=== PATIENT | female | born 1935 | race Caucasian/White ===

== ENCOUNTER 2017-05-25 09:24 | Observation (INO) ==
--- NOTE | 2017-05-25 10:02 | Emergency Department Note ---
Disposition Clinical Impression: CHF (congestive heart failure) Qualifiers: Congestive heart failure type: systolic Congestive heart failure chronicity: unspecified Qualified Code(s): I50.20 - Unspecified systolic (congestive) heart failure Disposition: Admitted As Inpatient Condition: Fair Referrals: Lanie Sandhu CNP [Primary Care Provider] - Forms: ED Satisfaction Letter Time of Disposition: 11:27 SOB HPI - General Chief Complaint: ED Shortness of Breath/Dyspnea Stated Complaint: sob-sent from cardiology for CHF Time Seen by Provider: 05/25/17 09:37 Source: patient Limitations: no limitations Nursing Notes Reviewed: Yes Vital Signs Reviewed: Yes - History of Present Illness I did review the previous record the 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 No orthopnea or paroxysmal nocturnal dyspnea. Does have increased swelling of the lower extremities and chronic pain of the legs but nothing new. Does have 7 pounds weight gain. She does have a cough when she eats but not at other times. She denies any fevers, no blood in the urine or stool. No history of congestive heart failure. Social history : No smoking or alcohol - Related Data Home Medications Medication Instructions Recorded Confirmed Aspirin 81 mg PO QAM 05/14/15 05/25/17 Bumetanide [Bumex] 1 mg PO 3XW 05/14/15 05/25/17 Metoprolol [Lopressor] 100 mg PO BID 05/14/15 05/25/17 Potassium Chloride [K-Tab ER] 20 meq PO 3XW 05/14/15 05/25/17 Warfarin [Coumadin] 2.5 mg PO QPM 05/14/15 05/25/17 Allergies Allergy/AdvReac Type Severity Reaction Status Date / Time No Known Allergies Allergy Verified 05/25/17 09:32 Review of Systems: Constitutional: No fever Vision: No blurred vision ENT: No rhinorrhea Respiratory: + cough Allergic: No allergies : No blood in urine GI: No blood in stool Hematologic: No bruising Dermatologic: No skin rash Musculoskeletal: No new pain in the extremities Neuro: No numbness of the extremities Past Medical History - Past Medical History Medical history: Reports: atrial fibrillation, CHF, hypertension Surgical history: Reports: cholecystectomy, hysterectomy Psychiatric history: Reports: no psych history - Social History Smoking Status: Never smoker Smokeless Tobacco Status: No Alcohol use: Reports: none Drug use: Reports: none Physical Exam CONSTITUTIONAL: Well-appearing; well-nourished; A&O X 3, in no apparent distress HEAD: Normocephalic; atraumatic EYES: PERRL, no scleral icterus NOSE: The nose is normal in appearance without rhinorrhea NECK: No JVD or distended neck veins RESP: Normal chest excursion with respiration; breath sounds clear and equal bilaterally; no wheezes, rhonchi, or rales CARD: Regular rhythm, without murmurs, rub or gallop ABD: Non-distended; non-tender, soft, without rigidity, rebound or guarding,no pulsatile mass CHEST: No pain with palpation SKIN: Normal for age and race; warm and dry without diaphoresis ; no apparent lesions EXTREMITIES: Pulses are 2 plus and equal times 4 extremities, 2+ bilateral symmetric pretibial pitting edema, no calf muscle pain, no erythema or signs of infection - General Limitations: no limitations General appearance: alert Course Vital Signs Temperature 97.8 F 05/25/17 09:32 Pulse Rate 63 05/25/17 09:32 Respiratory Rate 24 05/25/17 09:32 Blood Pressure 178/86 05/25/17 09:32 O2 Sat by Pulse Oximetry 95 05/25/17 09:32 Temperature 97.8 F 05/25/17 09:32 Pulse Rate 57 05/25/17 10:19 Respiratory Rate 18 05/25/17 10:19 Blood Pressure 180/95 05/25/17 10:19 O2 Sat by Pulse Oximetry 95 05/25/17 10:19 Oxygen Delivery Oxygen Delivery Nasal Cannula Shortness of Breath/Dyspnea - [facility] Narrative Medical decision making narrative: Patient's symptoms consistent with congestive heart failure but this will be further evaluated with chest x-ray as well as labs. I did review patient's EKG was does have sinus bradycardia as well as anterior T-wave inversion. This is a low voltage QRS complex however I did hear good heart sounds. Patient will be admitted for further inpatient evaluation. She was sent in by cardiology. 1003 Did review the patient's test results. I did speak with the hospitalist who accepted the patient for admission. I did review the echocardiogram which we did bedside which does not show evidence of pericardial tamponade. The patient is admitted to the hospital. I did start Lasix and nitroglycerin paste 1126 - Medical Records Medical records reviewed: Yes I reviewed the patient's medical records. - Lab Data Lab results reviewed: Yes I reviewed the patient's lab results. Result diagrams: 05/25/17 10:20 05/25/17 10:20 Lab Results 05/25/17 05/25/17 05/25/17 Range/Units 10:20 10:20 10:20 WBC 6.6 (4.3-11.1) K/mcL RBC 4.85 (3.82-4.97) M/mcL Hgb 13.7 (11.5-15.4) g/dL Hct 42.3 (35.3-44.9) % MCV 87.2 (83.0-100.0) fL MCH 28.2 (28.0-33.3) pg MCHC 32.4 (31.6-35.5) g/dL RDW 14.0 (11.5-14.5) % Plt Count 198 (140-400) K/mcL MPV 10.0 (9.4-12.4) fL Immature Gran % 1.5 (0-4) % Seg Neutrophils % 61.8 % Lymphocytes % 25.5 % Monocytes % 8.6 % Eosinophils % 2.0 % Basophils % 0.6 % Neutrophils # 4.1 (1.6-8.9) K/mcL Lymphocytes # 1.7 (0.6-4.6) K/mcL Monocytes # 0.6 (0.0-1.3) K/mcL Eosinophils # 0.1 (0.0-0.6) K/mcL Basophils # 0.0 (0.0-0.2) K/mcL Sodium 140 (136-145) mEq/L Potassium 4.0 (3.5-5.1) mEq/L Chloride 103 (98-107) mEq/L Carbon Dioxide 29 (23-29) mEq/L BUN 13 (8-23) mg/dL Creatinine 0.85 (0.60-1.20) mg/dL Est GFR ( Amer) > 60 (> 60) Est GFR (Non-Af Amer) > 60 (> 60) BUN/Creatinine Ratio 15 (6-26) Glucose 126 H (70-105) mg/dL Calculated Osmolality 292 (280-300) Calcium 8.8 (8.6-10.3) mg/dL Troponin I < 0.03 (< 0.04) ng/mL B-Natriuretic Peptide (Less than 100) pg/mL 05/25/17 Range/Units 10:20 WBC (4.3-11.1) K/mcL RBC (3.82-4.97) M/mcL Hgb (11.5-15.4) g/dL Hct (35.3-44.9) % MCV (83.0-100.0) fL MCH (28.0-33.3) pg MCHC (31.6-35.5) g/dL RDW (11.5-14.5) % Plt Count (140-400) K/mcL MPV (9.4-12.4) fL Immature Gran % (0-4) % Seg Neutrophils % % Lymphocytes % % Monocytes % % Eosinophils % % Basophils % % Neutrophils # (1.6-8.9) K/mcL Lymphocytes # (0.6-4.6) K/mcL Monocytes # (0.0-1.3) K/mcL Eosinophils # (0.0-0.6) K/mcL Basophils # (0.0-0.2) K/mcL Sodium (136-145) mEq/L Potassium (3.5-5.1) mEq/L Chloride (98-107) mEq/L Carbon Dioxide (23-29) mEq/L BUN (8-23) mg/dL Creatinine (0.60-1.20) mg/dL Est GFR ( Amer) (> 60) Est GFR (Non-Af Amer) (> 60) BUN/Creatinine Ratio (6-26) Glucose (70-105) mg/dL Calculated Osmolality (280-300) Calcium (8.6-10.3) mg/dL Troponin I (< 0.04) ng/mL B-Natriuretic Peptide 208 H (Less than 100) pg/mL - Radiology Data Radiology results reviewed: Yes I reviewed the patient's radiology results. Chest X-Ray 05/25/17 09:50 IMPRESSION: Stable cardiomegaly with mild pulmonary vascular congestion. D/ / Faith Thomas MD / Faith Thomas MD Interpreting Provider: Faith Thomas MD Critical Care Time Critical Care Time: No
[2017-05-25 10:37] LABS: Basophils % 0.6 %; Eosinophils # 0.1 K/mcL (0.0-0.6); Hematocrit 42.3 % (35.3-44.9); Hemoglobin 13.7 g/dL (11.5-15.4); Immature Granulocytes % 1.5 % (0-4); Lymphocytes # 1.7 K/mcL (0.6-4.6); Lymphocytes % 25.5 %; Mean Corpuscular HGB Conc 32.4 g/dL (31.6-35.5); Mean Corpuscular Hemoglobin 28.2 pg (28.0-33.3); Mean Corpuscular Volume 87.2 fL (83.0-100.0); Monocytes # 0.6 K/mcL (0.0-1.3); Monocytes % 8.6 %; Neutrophils # 4.1 K/mcL (1.6-8.9); Platelet Count 198 K/mcL (140-400); Red Blood Count 4.85 M/mcL (3.82-4.97); Segmented Neutrophils % 61.8 %
[2017-05-25 10:59] LABS: BUN/Creatinine Ratio 15 (6-26); Blood Urea Nitrogen 13 mg/dL (8-23); Calcium 8.8 mg/dL (8.6-10.3); Carbon Dioxide 29 mEq/L (23-29); Chloride 103 mEq/L (98-107); Glucose 126 mg/dL (70-105); Osmolality,Calculated 292 (280-300); Sodium 140 mEq/L (136-145); eGFR For African Americans > 60 (> 60); eGFR For Non-African Americans > 60 (> 60)
[2017-05-25] MEDS ORDERED: Nitroglycerin 1 INCH/GM PACKET TP ONE (11:14)
[2017-05-25] MEDS ORDERED: Furosemide 40 MG/4 ML VIAL IVP ONE (11:14)
[2017-05-25 12:20] LABS: INR 1.7; Prothrombin Time 18.4 Seconds (9.4-12.1)
[2017-05-25] MEDS ORDERED: Naloxone 0.4 MG/ML INJ IVP PRN (13:12)
[2017-05-25] MEDS ORDERED: Acetaminophen 325 MG TABLET PO PRN (13:12)
--- NOTE | 2017-05-25 13:23 | Internal Med History&Physical ---
<Larry Paredes - Last Filed: 05/25/17 13:43> Date of Encounter: 05/25/17 Time of Encounter: 12:30 Assessment and Plan (1) CHF (congestive heart failure) Current visit: Yes Status: Acute Acute and new onset of congestive heart failure. Pt. denies previous hx. No recent echocardiogram. She reports SOB and dyspnea for the past three weeks, worsening over the past week w/7 pound weight gain. No home O2 use. States she takes Bumex but no regularly because it causes extreme pain in legs. Cardiology consult ordered in ED and I appreciate the consult. Echocardiogram ordered. Continuous cardiac telemetry. Will hold Bumex and administer 60 mg IVP lasix BID. 1.5L daily fluid restricition. Monitor I&O and daily weight. Supplemental O2 w/titration and SpO2 monitoring PRN. Xopenex 0.63 Q6 scheduled. Mucinex BID for cough. Pt. discussed w/Dr. Henao who is in agreement w/plan of care. Pt. 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 Observation. Qualifiers: Congestive heart failure type: unspecified Congestive heart failure chronicity: unspecified Qualified Code(s): I50.9 - Heart failure, unspecified (2) Atrial fibrillation Current visit: Yes Status: Chronic Hx of chronic paroxysmal atrial fibrillation. EKG today shows sinus bradycardia. Continuous cardiac telemetry. Will continue pts. Coumadin w/ pharmacy dosing. Qualifiers: Atrial fibrillation type: paroxysmal Qualified Code(s): I48.0 - Paroxysmal atrial fibrillation (3) HTN (hypertension) Current visit: Yes Status: Chronic Hx of chronic HTN. Monitor pt. and VS. Pt. currently takes metoprolol but is experiencing breakthrough HTN. Will continue metoprolol and add Imdur 30 mg daily. Qualifiers: Hypertension type: essential hypertension Qualified Code(s): I10 - Essential (primary) hypertension (4) Gout Current visit: Yes Status: Chronic Hx of chronic gout. Pt. reports occasional flare-ups but is not currently taking medication for gout. Will order Allopurinol if warranted. Qualifiers: Gout site: unspecified site Gout etiology: unspecified cause Chronicity: unspecified Qualified Code(s): M10.9 - Gout, unspecified (5) DVT prophylaxis Current visit: Yes Status: Acute Continue pts. Coumadin w/pharmacy dosing for DVT prophylaxis. Monitor pt. for signs of bleeding. Internal Medicine - H&P: HPI Chief complaint: SOB/Dyspnea Admitted From: Emergency Dept Plans for Post Hospital Care: Home History of present illness: Ms. Tarango is a 82 year old female with medical hx of atrial fibrillation, gout , and hypertension presents from the ED with chief complaint shortness of breath and dyspnea for the past 3 weeks which is worsened over the past week. Patient also reports weight gain of 7 pounds over the past week. Denies use of home oxygen. SOB and dyspnea become worse with exertion and patient is also reported increase in lower extremity pedal edema bilaterally. Patient has been state they both were sick several weeks ago and patient reports residual cough. Patient reports SOB and dyspnea but denies fever, chills, nausea, vomiting, changes in vision, headache, chest pain, palpitations, numbness, tingling, abdominal pain, diarrhea, constipation, weakness, fatigue, dizziness, lightheadedness, pre-syncope, or syncope. Past Med Surg Social Fam HX - Past Medical History Source: patient, old records reviewed, obtained from family Medical history: atrial fibrillation, hypertension Psychiatric history: no psych history - Past Surgical History Surgical History: cholecystectomy, hysterectomy (Total) - Social History Smoking Status: Never smoker Smokeless Tobacco Status: No Alcohol use: none Drug use: none Current living situation: Home, With Family Activity Level: Independent ambulation Recent Out of Country Travel Within the Last 8 Weeks: No Exposure or Possible Exposure to Illness During Travel: No - Family History Mother Race: Family Member Ethnicity: Non- Living Status: Age at : 88 Cause of : Stroke complications Hx Family Cardiac Disorders: Yes (Stroke) Hx Family Endocrine Disorder: Yes (diabetes) Father Race: Family Member Ethnicity: Non- Living Status: Age at : 88 Cause of : Stroke Hx Family Cardiac Disorders: Yes (Stroke) Brother Race: Family Member Ethnicity: Non- Living Status: Age at : 75 Cause of : Pancreatitis Hx Family Endocrine Disorder: Yes (Pancreatic problems) Sister Race: Family Member Ethnicity: Non- Living Status: Age at : 89 Cause of : NH Hx Family Cardiac Disorders: Yes (NH) Hx Family Endocrine Disorder: Yes (DM) Internal Medicine - H&P: Meds Aspirin 81 mg PO QAM 05/14/15 [History] Bumetanide [Bumex] 1 mg PO 3XW 05/14/15 [History] Metoprolol [Lopressor] 100 mg PO BID 05/14/15 [History] Potassium Chloride [K-Tab ER] 20 meq PO 3XW 05/14/15 [History] Warfarin [Coumadin] 2.5 mg PO QPM 05/14/15 [History] 3 Allergy/AdvReac Type Severity Reaction Status Date / Time No Known Allergies Allergy Verified 05/25/17 09:32 All Systems PM: A 10-system review of systems was performed and is negative for pertinent findings except as documented above in the HPI. - Constitutional Constitutional: as per HPI, weight gain (7 lbs in 1 week), no chills, no fever(s ), no night sweats - EENT Eyes: no change in vision, no discharge, no pain, no photophobia Ears: no ear discharge, no ear pain, no tinnitus Nose, mouth and throat: no dysphagia, no nasal discharge, no neck pain, no sore throat - Breasts Breasts: as per HPI - Cardiovascular Cardiovascular ROS IM: as per HPI, dyspnea, dyspnea on exertion, edema ( Bilateral pedal edema), no chest pain, no diaphoresis, no lightheadedness, no palpitations, no syncope - Respiratory Respiratory: as per HPI, cough, dyspnea, dyspnea on exertion, no wheezing, no excessive phlegm production - Gastrointestinal Gastrointestinal: no abdominal pain, no diarrhea, no hematemesis, no hematochezia, no melena, no nausea, no vomiting - Genitourinary Genitourinary: no change in urinary stream, no dysuria, no flank pain, no hematuria Menstruation: as per HPI - Musculoskeletal Musculoskeletal ROS IM: no numbness, no tingling - Integumentary Integumentary IM: no rash, no unusual bruising - Neurological Neurological ROS: no confusion, no convulsions, no focal weakness, no numbness, no tingling, no tremor(s) - Psychiatric Psychiatric: as per HPI - Endocrine Endocrine IM: as per HPI - Hematologic/Lymphatic Hematologic/Lymphatic: no easy bruising - Allergic/Immunologic Allergic/Immunologic: as per HPI - Constitutional Vitals: Temp Pulse Resp BP Pulse Ox 97.7 F 63 16 173/82 91 05/25/17 12:12 05/25/17 12:12 05/25/17 12:12 05/25/17 12:12 05/25/17 12:12 General appearance: Present: cooperative, A&O X 3, morbidly obese, pleasant, no acute distress, answers questions appropriately - Head Head exam: Present: atraumatic, normocephalic - Eye Eye exam: Present: PERRL, conjuntiva pink, sclera anicteric Pupils: Present: PERRL - ENT ENT exam: Present: normal exam - Neck Neck exam general surgery: Present: supple, trachea midline. Absent: lymphadenopathy - Respiratory Respiratory exam: Present: CTAB. Absent: accessory muscle use, rales, rhonchi, wheezes - Cardiovascular Cardiovascular exam: Present: bradycardia, +S1, +S2 - GI/Abdominal GI/Abdominal exam: Present: normal bowel sounds, soft, no peritoneal signs. Absent: distended, tenderness - Rectal Rectal exam: Present: deferred - Additional comments: exam deferred. - Extremities Exam Extremities exam: Present: pedal edema (1+ pitting edema bilaterally), warm, radial pulses palpable and symmetrical. Absent: calf tenderness, cyanotic - Back Exam Back exam: Present: normal inspection - Neurological Exam Neurological exam: Present: CN II-XII intact, oriented X3, no focal deficits. Absent: pronater drift, facial droop, speech deficit - Psychiatric Psychiatric exam: Present: normal affect, normal mood - Skin Skin exam: Present: dry, intact Internal Med - H&P Results - Labs CBC & Chem 7: 05/25/17 10:20 05/25/17 10:20 - EKG Data EKG shows normal: sinus rhythm Rate: bradycardia - EKG Data Prior EKG available for review: no EKG comments: 05/25/17 13:29 EKG dated 05/25/17 shows sinus bradycardia with low QRS voltage in precordial leads. - Diagnostic Studies Chest x-ray Additional comments: Impressions Chest X-Ray 05/25/17 09:50 IMPRESSION: Stable cardiomegaly with mild pulmonary vascular congestion. D/ / Faith Thomas MD / Faith Thomas MD Interpreting Provider: Faith Thomas MD <Giacomo Henao - Last Filed: 05/26/17 07:16> Date of Encounter: 05/26/17 Internal Medicine - H&P: HPI History of present illness: Ms. Tarango is a 82 year old female All Systems PM: A 10-system review of systems was performed and is negative for pertinent findings except as documented above in the HPI. - Constitutional Vitals: Temp Pulse Resp BP Pulse Ox 98.0 F 65 16 138/76 92 05/26/17 03:45 05/26/17 03:45 05/26/17 03:55 05/26/17 03:45 05/26/17 03:55 Internal Med - H&P Results - Labs CBC & Chem 7: 05/26/17 05:17 05/26/17 05:17 Labs: Short CBC 05/26/17 Range/Units 05:17 WBC 7.8 (4.3-11.1) K/mcL Hgb 13.4 (11.5-15.4) g/dL Hct 40.9 (35.3-44.9) % Plt Count 210 (140-400) K/mcL Neutrophils # 5.0 (1.6-8.9) K/mcL BMP 05/26/17 05:17 Sodium 140 Potassium 3.3 L Chloride 100 Carbon Dioxide 30 H BUN 17 Creatinine 0.95 Glucose 141 H Calcium 8.8 Liver Function 05/26/17 Range/Units 05:17 Total Bilirubin 1.2 H (0.3-1.0) mg/dL AST 16 (13-39) Units/L ALT 14 (7-52) Units/L Alkaline Phosphatase 64 (34-104) Units/L Albumin 4.1 (3.5-5.7) g/dL - Attending Attestation I examined this patient and my medical decision-making was reviewed with the Resident Physician. I agree with the documented findings, disposition and treatment plan as described except to the extent set forth below.
[2017-05-25] MEDS: Levalbuterol Neb 0.63 MG/3 ML IH SCH ×2 (15:50→22:32)
[2017-05-25] MEDS ORDERED: *HR* Warfarin 3 MG TABLET PO SCH (18:00)
[2017-05-25] MEDS ORDERED: Warfarin perPT PO PRN (18:00)
[2017-05-25] MEDS: Furosemide 40 MG/4 ML VIAL IVP SCH (20:02)
[2017-05-25] MEDS: Metoprolol 100 MG TABLET PO SCH (20:03)
[2017-05-26] MEDS: *HR* HYDROcodone/Acet 5/325 mg TABLET PO PRN ×2 (00:08→20:34)
[2017-05-26] MEDS: Levalbuterol Neb 0.63 MG/3 ML IH SCH ×4 (03:54→22:54)
[2017-05-26 06:29] LABS: Basophils % 0.5 %; Eosinophils # 0.1 K/mcL (0.0-0.6); Eosinophils % 1.5 %; Hematocrit 40.9 % (35.3-44.9); Hemoglobin 13.4 g/dL (11.5-15.4); Immature Granulocytes % 0.9 % (0-4); Lymphocytes # 1.9 K/mcL (0.6-4.6); Lymphocytes % 23.9 %; Mean Corpuscular HGB Conc 32.8 g/dL (31.6-35.5); Mean Corpuscular Hemoglobin 27.9 pg (28.0-33.3); Mean Corpuscular Volume 85.2 fL (83.0-100.0); Mean Platelet Volume 10.2 fL (9.4-12.4); Monocytes # 0.7 K/mcL (0.0-1.3); Monocytes % 8.8 %; Platelet Count 210 K/mcL (140-400); Red Cell Distribution Width 13.8 % (11.5-14.5); Segmented Neutrophils % 64.4 %
[2017-05-26 06:30] LABS: Hemoglobin A1C 5.7 %
[2017-05-26 06:41] LABS: INR 1.7; Prothrombin Time 18.7 Seconds (9.4-12.1)
[2017-05-26 07:03] LABS: Alanine Aminotransferase 14 Units/L (7-52); Albumin 4.1 g/dL (3.5-5.7); Albumin/Globulin Ratio 1.7 (1.1-2.2); Alkaline Phosphatase 64 Units/L (34-104); Aspartate Amino Transferase 16 Units/L (13-39); BUN/Creatinine Ratio 18 (6-26); Bilirubin,Total 1.2 mg/dL (0.3-1.0); Blood Urea Nitrogen 17 mg/dL (8-23); Calcium 8.8 mg/dL (8.6-10.3); Carbon Dioxide 30 mEq/L (23-29); Chloride 100 mEq/L (98-107); Chol/HDL Ratio 5.2 (0-4.9); Cholesterol 219 mg/dL (< 200); Globulin 2.4 g/dL (2.4-3.5); Glucose 141 mg/dL (70-105); HDL Cholesterol 42 mg/dL (40-59); LDL Cholesterol,Calculated 141 mg/dL (0-99); Magnesium 1.8 mg/dL (1.6-2.6); Osmolality,Calculated 294 (280-300); Potassium 3.3 mEq/L (3.5-5.1); Sodium 140 mEq/L (136-145); Total Protein 6.5 g/dL (6.4-8.9); Triglycerides 180 mg/dL (< 150); eGFR For African Americans > 60 (> 60); eGFR For Non-African Americans 56 (> 60)
[2017-05-26] MEDS: Metoprolol 100 MG TABLET PO SCH ×2 (08:59→20:09)
[2017-05-26] MEDS: Isosorbide MONOnitrate (24 HR) 30 MG TAB.ER.24H PO SCH (08:59)
[2017-05-26] MEDS: Furosemide 40 MG/4 ML VIAL IVP SCH (08:59)
[2017-05-26] MEDS: Aspirin 81 MG TAB.CHEW PO SCH (08:59)
[2017-05-26] MEDS ORDERED: Bumetanide 1 MG TABLET PO SCH (09:00)
--- NOTE | 2017-05-26 11:07 | Cardiology Consult Note ---
<Belinda Curran - Last Filed: 05/26/17 11:03> Date of Encounter: 05/26/17 Time of Encounter: 09:30 Assessment and Plan (1) Diastolic congestive heart failure, NYHA class 2 Current Visit: Yes Status: Acute Per cardiology: -Admitted with diastolic CHF. -Presented with increased shortness of breath, increased edema, and 8 pound weight gain. -Of note, had been on bumex 1mg taken every other day in outpatient setting. -TTE reviewed with LVEF preserved, mild diastolic dysufnction, no segmental wall motion abnormalities. -Chest x-ray with mild pulmonary vascular congestion. -BNP 200s on admission -Started on lasix 60mg IV BID per primary service. -Euvolemic on exam today. -States symptoms are much improved. -Weight has decreased since admission. -No output recorded. -Will stop lasix IV. -Will start bumex 1mg daily (per review of primary knowledge architect note, was previously on lasix po with no change in symptoms). -Strict i/os, fluid restriction, daily weights. -CHf education reinforced with patient. Qualifiers: Congestive heart failure chronicity: acute on chronic Qualified Code(s): I50.33 - Acute on chronic diastolic (congestive) heart failure (2) PAF (paroxysmal atrial fibrillation) Current Visit: Yes Status: Chronic Per caridology: -Known PAF. -On beta yvonne -On coumadin for anticoagulation. -Currently SR. (3) Hypokalemia Current Visit: Yes Status: Acute Per cardiology: -K 4 on admission, after diuresis K 3.3 today. -Was on KCL 20 mEq. -Will increase KCL to 40 mEq daily. Discussion w patient/family: The assessment and plan as outlined above was discussed with the patient who expressed understanding and agreement. All questions were answered. Thank you for involving us in the care of your patient. Please call with any questions. Discussed and reviewed with Dr.John Rasheed History of Present Illness Consult date: 05/25/17 Requesting physician: Juan Antonio Madsen Consult reason: chf Chief complaint: shortness of breath History of present illness: Ms. Tarango is a 82 year old female with a relevant past medical history of HTN, chronic edema, diastolic dysfunction, PAF anticoagulated on coumadin. Patient presented for outpatient cardiology appointment yesterday and was recommended for ER evaluation due to increased shortness of breath, increased edema, and weight gain of 8 pounds. Patient was given IV lasix. Patient states today she feels much better. States breathing and edema has improved. Past Med Surg Social Fam HX - Past Medical History Attestation: Yes The following information was validated with the patient. Source: patient, old records reviewed Medical history: atrial fibrillation, hypertension Psychiatric history: no psych history - Past Surgical History Surgical History: cholecystectomy, hysterectomy (Total) - Social History Smoking Status: Never smoker Smokeless Tobacco Status: No Alcohol use: none Drug use: none - Family History Brother Race: Family Member Ethnicity: Non- Living Status: Age at : 75 Cause of : Pancreatitis Hx Family Endocrine Disorder: Yes (Pancreatic problems) Sister Race: Family Member Ethnicity: Non- Living Status: Age at : 89 Cause of : DC Hx Family Cardiac Disorders: Yes (DC) Hx Family Endocrine Disorder: Yes (DM) Mother Race: Family Member Ethnicity: Non- Living Status: Age at : 88 Cause of : Stroke complications Hx Family Cardiac Disorders: Yes (Stroke) Hx Family Endocrine Disorder: Yes (diabetes) Father Race: Family Member Ethnicity: Non- Living Status: Age at : 88 Cause of : Stroke Hx Family Cardiac Disorders: Yes (Stroke) Medications and Allergies Aspirin 81 mg PO QAM 05/14/15 [History] Bumetanide [Bumex] 1 mg PO 3XW 05/14/15 [History] Metoprolol [Lopressor] 100 mg PO BID 05/14/15 [History] Potassium Chloride [K-Tab ER] 20 meq PO 3XW 05/14/15 [History] Warfarin [Coumadin] 2.5 mg PO QPM 05/14/15 [History] 3 Allergy/AdvReac Type Severity Reaction Status Date / Time No Known Allergies Allergy Verified 05/25/17 09:32 All Systems Review: A 10-system review of systems was performed and is negative for pertinent findings except as documented above in the HPI. - Constitutional Constitutional: weight gain - Cardiovascular Cardiovascular: as per HPI, dyspnea on exertion, leg edema Physical Examination Vital Signs, Last 4 Hours Temp Pulse Resp BP Pulse Ox 05/26/17 10:14 18 93 05/26/17 09:07 92 05/26/17 07:33 97.7 F 68 16 136/74 92 General: Conversant, No Apparent Distress HEENT: Atraumatic, Normocephaly, Mucus Membranes Moist Neck: No JVD, Normal carotid pulses Cardiac: Reg Rate and Rhythm, Normal S1 and S2, No Murmur Lungs: Normal Breath Sounds, No Wheeze, Rales, Rhonchi Neuro: Alert and responsive, No focal deficits noted Abdomen: Soft, Non-Tender Skin: No rashes noted on visualized skin Musculoskeletal: No Chest Wall Tenderness Extremities: No Clubbing, No Cyanosis, No Edema, Normal Pulses Results 05/26/17 05:17 05/26/17 05:17 Lab Results Impressions Echocardiogram 05/25/17 13:19 Impressions: LVEF 60-65%. Normal LV chamber size, wall thickness and function. Mild left ventricular diastolic dysfunction. Normal right ventricular structure and function. No evidence of pulmonary hypertension. There is a small pericardial effusion present. Grossly, it appears circumferential. There is no echocardiographic evidence of tamponade. No significant valvular dysfunction. Left Ventricular Wall Motion: Rest Echo Findings All wall segments showed normal motion. Findings: Study Quality * Technically adequate exam. ECG Findings * Normal sinus rhythm. Left Ventricle * LVEF 60-65%. * Normal LV chamber size, wall thickness and function. * Mild left ventricular diastolic dysfunction. Right Ventricle * Normal right ventricular structure and function. Left Atrium * Normal left atrial size. Right Atrium * Normal right atrial size. Interatrial Septum * Interatrial septum not well evaluated. Aortic Valve * Aortic valve not well visualized. * No aortic regurgitation. * No aortic stenosis. Mitral Valve * Normal mitral valve structure and function. * No mitral regurgitation. * No mitral stenosis. Tricuspid Valve * Normal tricuspid valve structure and function. * Trace tricuspid regurgitation. * No evidence of pulmonary hypertension. Pulmonic Valve * Pulmonic valve is not well visualized. Aorta * Normally sized aortic root. Pericardium * There is a small pericardial effusion present. Grossly, it appears circumferential. * There is no echocardiographic evidence of tamponade. IVC * The IVC is not dilated. Pulmonary Artery * Normal visualized portions of the main pulmonary artery. Active Medications Acetaminophen (Tylenol) 650 mg PO Q6HR PRN PRN Reason: Mild Pain/Fever Stop: 11/24/17 13:13 Last Admin: 05/25/17 20:03 Dose: 650 mg Hydrocodone Bitart/Acetaminophen (Lyons 5-325 Mg) 1 tab PO Q6HR PRN PRN Reason: Moderate Pain Stop: 11/24/17 13:13 Last Admin: 05/26/17 00:08 Dose: 1 tab Aspirin (Aspirin) 81 mg PO QAM [facility] Stop: 11/25/17 09:01 Last Admin: 05/26/17 08:59 Dose: 81 mg Bumetanide (Bumex) 1 mg PO DAILY [facility] Stop: 11/26/17 09:01 Guaifenesin (Mucinex) 600 mg PO BID [facility] Stop: 11/24/17 21:01 Last Admin: 05/26/17 08:59 Dose: 600 mg Isosorbide Mononitrate (Imdur) 30 mg PO DAILY [facility] Stop: 11/25/17 09:01 Last Admin: 05/26/17 08:59 Dose: 30 mg Levalbuterol HCl (Xopenex) 0.63 mg IH [id number] [facility] Stop: 11/24/17 16:01 Last Admin: 05/26/17 10:12 Dose: 0.63 mg Metoprolol Tartrate (Lopressor) 100 mg PO BID [facility] Stop: 11/24/17 21:01 Last Admin: 05/26/17 08:59 Dose: 100 mg Naloxone HCl (Narcan) 0.4 mg IVP Q2MIN PRN PRN Reason: SEE COMMENTS Stop: 11/24/17 13:13 Potassium Chloride (Potassium Chloride) 40 meq PO DAILY [facility] Stop: 11/26/17 09:01 Warfarin Sodium (Coumadin Perpt) 1 each PO DAILY@1800 PRN PRN Reason: SEE COMMENTS Stop: 11/24/17 18:01 Laboratory Tests 05/25/17 05/25/17 05/25/17 10:20 10:20 10:20 Hgb Potassium 4.0 Creatinine Troponin I < 0.03 B-Natriuretic Peptide 208 H 05/26/17 05/26/17 05:17 05:17 Hgb 13.4 Potassium 3.3 L Creatinine 0.95 Troponin I B-Natriuretic Peptide - Imaging and Cardiology Chest Xray: report reviewed Echo: report reviewed - EKG Interpretation EKG results cardiology: personally reviewed (ECG with sinus bradycardia, HR 58.) , other (Telemetry reviewed with average HR previous 12 hours noted to be 68, SR. 1 episode of atrial tachycardia noted, lasting 5 beats.) Consult Discharge Plan - Plan Referrals: Lanie Sandhu, [facility] [Primary Care Provider] - <Antoni Rasheed - Last Filed: 05/26/17 17:12> Date of Encounter: 05/26/17 - Attending Attestation I have personally performed a face to face evaluation on this patient. I have reviewed and agree with the care plan. History and Exam by me shows: Diastolic CHF, diuresing well. Assessment and Plan Discussion w patient/family: The assessment and plan as outlined above was discussed with the patient and/or family members who expressed understanding and agreement. All questions were answered. Thank you for involving us in the care of your patient. Please call with any questions. History of Present Illness History of present illness: Ms. Tarango is a 82 year old female All Systems Review: A 10-system review of systems was performed and is negative for pertinent findings except as documented above in the HPI. Physical Examination Vital Signs, Last 4 Hours Temp Pulse Resp BP Pulse Ox 05/26/17 15:29 16 92 05/26/17 15:10 97.8 F 73 18 130/75 91 Results 05/26/17 05:17 05/26/17 05:17 Lab Results 05/26/17 05/26/17 05/26/17 05:17 05:17 05:17 WBC 7.8 Hgb 13.4 Hct 40.9 Plt Count 210 INR 1.7 Sodium 140 Potassium 3.3 L Chloride 100 Carbon Dioxide 30 H BUN 17 Creatinine 0.95 Glucose 141 H Calcium 8.8 Magnesium 1.8 Total Bilirubin 1.2 H AST 16 ALT 14 Alkaline Phosphatase 64
--- NOTE | 2017-05-26 13:43 | Electrocardiograph Report ---
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
[2017-05-26] MEDS ORDERED: *HR* Warfarin 2.5 MG TABLET PO ONE (18:00)
--- NOTE | 2017-05-26 18:25 | Internal Med Progress Note ---
Date of Encounter: 05/26/17 Time of Encounter: 13:00 - Assessment and plan (1) CHF (congestive heart failure) Current Visit: Yes Status: Acute Assessment and plan: Patient initially presented with increased shortness of breath and lower extremity edema as well as 8 pound weight gain. Chest x-ray did reveal vascular congestion as well as elevated BNP cardiology had been consult and she was initiated on Lasix IV twice a day however this was stopped per cardiology and initiated on Bumex which we will continue We will monitor intake and output daily weights 1500 mL fluid restriction Low-sodium diet Continuous cardiac monitoring Qualifiers: Congestive heart failure type: unspecified Congestive heart failure chronicity: unspecified Qualified Code(s): I50.9 - Heart failure, unspecified (2) Hypokalemia Current Visit: Yes Status: Acute Assessment and plan: Potassium is 3.3 potassium has been increased 40 mEq daily (3) PAF (paroxysmal atrial fibrillation) Current Visit: Yes Status: Chronic Assessment and plan: Recently she is in sinus rhythm Continue with beta yvonne She is on Coumadin daily INRs with INR goal of 1.5-2 pharmacy to dose Continuous cardiac monitoring (4) DVT prophylaxis Current Visit: Yes Status: Acute Assessment and plan: Patient is on Coumadin - Time Spent With Patient less than 15 minutes - Subjective Interval history: Patient states that she is feeling much better denies any shortness of breath only complains of some leg cramping. She is hemodynamically stable at this time. - Constitutional Vitals: Temp Pulse Resp BP Pulse Ox 97.8 F 73 16 130/75 92 05/26/17 15:10 05/26/17 15:10 05/26/17 15:29 05/26/17 15:10 05/26/17 15:29 General appearance: Present: cooperative, A&O X 3, morbidly obese, pleasant, no acute distress, answers questions appropriately - Head Head exam: Present: atraumatic, normocephalic - Eye Eye exam: Present: PERRL, conjuntiva pink, sclera anicteric Pupils: Present: PERRL - Neck Neck exam general surgery: Present: supple, trachea midline. Absent: lymphadenopathy - Respiratory Respiratory exam: Present: CTAB. Absent: accessory muscle use, rales, rhonchi, wheezes - Cardiovascular Cardiovascular exam: Present: RRR, +S1, +S2. Absent: diastolic murmur, gallop, rubs, systolic murmur - GI/Abdominal GI/Abdominal exam: Present: normal bowel sounds, soft, no peritoneal signs. Absent: distended, tenderness - Extremities Exam Extremities exam: Present: pedal edema, warm, radial pulses palpable and symmetrical. Absent: calf tenderness, cyanotic - Neurological Exam Neurological exam: Present: CN II-XII intact, oriented X3, no focal deficits. Absent: pronater drift, facial droop, speech deficit - Skin Skin exam: Present: dry, intact Internal Medicine: Result - Labs CBC & Chem 7: 05/26/17 05:17 05/26/17 05:17 Labs: Short CBC 05/26/17 Range/Units 05:17 WBC 7.8 (4.3-11.1) K/mcL Hgb 13.4 (11.5-15.4) g/dL Hct 40.9 (35.3-44.9) % Plt Count 210 (140-400) K/mcL Neutrophils # 5.0 (1.6-8.9) K/mcL BMP 05/26/17 05:17 Sodium 140 Potassium 3.3 L Chloride 100 Carbon Dioxide 30 H BUN 17 Creatinine 0.95 Glucose 141 H Calcium 8.8 Liver Function 05/26/17 Range/Units 05:17 Total Bilirubin 1.2 H (0.3-1.0) mg/dL AST 16 (13-39) Units/L ALT 14 (7-52) Units/L Alkaline Phosphatase 64 (34-104) Units/L Albumin 4.1 (3.5-5.7) g/dL - ABG Interpretation ABG results: PT/INR, D-dimer PT 18.7 Seconds (9.4-12.1) H 05/26/17 05:17 - Impressions Impressions Echocardiogram 05/25/17 13:19 Impressions: LVEF 60-65%. Normal LV chamber size, wall thickness and function. Mild left ventricular diastolic dysfunction. Normal right ventricular structure and function. No evidence of pulmonary hypertension. There is a small pericardial effusion present. Grossly, it appears circumferential. There is no echocardiographic evidence of tamponade. No significant valvular dysfunction. Left Ventricular Wall Motion: Rest Echo Findings All wall segments showed normal motion. Findings: Study Quality * Technically adequate exam. ECG Findings * Normal sinus rhythm. Left Ventricle * LVEF 60-65%. * Normal LV chamber size, wall thickness and function. * Mild left ventricular diastolic dysfunction. Right Ventricle * Normal right ventricular structure and function. Left Atrium * Normal left atrial size. Right Atrium * Normal right atrial size. Interatrial Septum * Interatrial septum not well evaluated. Aortic Valve * Aortic valve not well visualized. * No aortic regurgitation. * No aortic stenosis. Mitral Valve * Normal mitral valve structure and function. * No mitral regurgitation. * No mitral stenosis. Tricuspid Valve * Normal tricuspid valve structure and function. * Trace tricuspid regurgitation. * No evidence of pulmonary hypertension. Pulmonic Valve * Pulmonic valve is not well visualized. Aorta * Normally sized aortic root. Pericardium * There is a small pericardial effusion present. Grossly, it appears circumferential. * There is no echocardiographic evidence of tamponade. IVC * The IVC is not dilated. Pulmonary Artery * Normal visualized portions of the main pulmonary artery. Consult Discharge Plan - Plan Referrals: Lanie Sandhu, [facility] [Primary Care Provider] -
[2017-05-26 19:11] LABS: BUN/Creatinine Ratio 21 (6-26); Blood Urea Nitrogen 22 mg/dL (8-23); Calcium 8.6 mg/dL (8.6-10.3); Carbon Dioxide 30 mEq/L (23-29); Chloride 100 mEq/L (98-107); Glucose 212 mg/dL (70-105); Osmolality,Calculated 302 (280-300); Potassium 3.6 mEq/L (3.5-5.1); Sodium 141 mEq/L (136-145); eGFR For African Americans > 60 (> 60); eGFR For Non-African Americans 50 (> 60)
[2017-05-27] MEDS: *HR* HYDROcodone/Acet 5/325 mg TABLET PO PRN (02:40)
[2017-05-27] MEDS: Levalbuterol Neb 0.63 MG/3 ML IH SCH ×3 (04:06→15:53)
[2017-05-27 04:10] LABS: Basophils % 0.5 %; Eosinophils # 0.1 K/mcL (0.0-0.6); Eosinophils % 1.4 %; Hemoglobin 12.9 g/dL (11.5-15.4); Immature Granulocytes % 0.8 % (0-4); Lymphocytes # 1.8 K/mcL (0.6-4.6); Lymphocytes % 21.3 %; Mean Corpuscular HGB Conc 32.3 g/dL (31.6-35.5); Mean Corpuscular Volume 86.8 fL (83.0-100.0); Monocytes # 0.9 K/mcL (0.0-1.3); Neutrophils # 5.6 K/mcL (1.6-8.9); Platelet Count 204 K/mcL (140-400); Red Blood Count 4.61 M/mcL (3.82-4.97); Red Cell Distribution Width 14.1 % (11.5-14.5)
[2017-05-27 04:16] LABS: INR 1.8; Prothrombin Time 19.9 Seconds (9.4-12.1)
[2017-05-27 04:41] LABS: Alanine Aminotransferase 13 Units/L (7-52); Albumin/Globulin Ratio 1.7 (1.1-2.2); Alkaline Phosphatase 58 Units/L (34-104); Aspartate Amino Transferase 15 Units/L (13-39); BUN/Creatinine Ratio 22 (6-26); Blood Urea Nitrogen 21 mg/dL (8-23); Calcium 8.9 mg/dL (8.6-10.3); Carbon Dioxide 33 mEq/L (23-29); Chloride 102 mEq/L (98-107); Globulin 2.4 g/dL (2.4-3.5); Glucose 147 mg/dL (70-105); Osmolality,Calculated 300 (280-300); Potassium 3.6 mEq/L (3.5-5.1); Sodium 142 mEq/L (136-145); Total Protein 6.4 g/dL (6.4-8.9); eGFR For African Americans > 60 (> 60); eGFR For Non-African Americans 57 (> 60)
[2017-05-27] MEDS ORDERED: Bumetanide 1 MG TABLET PO SCH (09:00)
[2017-05-27] MEDS: Isosorbide MONOnitrate (24 HR) 30 MG TAB.ER.24H PO SCH (10:41)
[2017-05-27] MEDS: Metoprolol 100 MG TABLET PO SCH (10:41)
[2017-05-27] MEDS: Aspirin 81 MG TAB.CHEW PO SCH (10:41)
--- NOTE | 2017-05-27 12:30 | Discharge Summary ---
Date of Encounter: 05/27/17 Time of Encounter: 12:28 - Discharge Diagnosis (1) CHF (congestive heart failure) Priority: Primary Status: Acute Comments: History of diastolic heart failure-echo 05/25/2017 EF 6065% mild diastolic dysfunction She was initially started on Lasix and switched over to Bumex 1 mg daily per cardiology which will continue Encouraged low-sodium diet Monitor daily weights Monitor fluids Qualifiers: Congestive heart failure type: diastolic Congestive heart failure chronicity: unspecified Qualified Code(s): I50.30 - Unspecified diastolic ( congestive) heart failure (2) Hypokalemia Priority: Secondary Status: Chronic Comments: Improved continue with potassium at home 40 mEq daily (3) PAF (paroxysmal atrial fibrillation) Priority: Primary Status: Chronic Comments: Presently in sinus rhythm Continue with beta yvonne Continue with Coumadin - Discharge Medications Prescriptions: Bumetanide [Bumex] 1 mg PO DAILY #30 tablet Potassium Chloride 40 meq PO DAILY #30 tab.er.prt Home Medications: Aspirin 81 mg PO QAM 05/14/15 [History] Metoprolol [Lopressor] 100 mg PO BID 05/14/15 [History] Warfarin [Coumadin] 2.5 mg PO QPM 05/14/15 [History] Bumetanide [Bumex] 1 mg PO DAILY #30 tablet 05/27/17 [Rx] Potassium Chloride 40 meq PO DAILY #30 tab.er.prt 05/27/17 [Rx] Allergies/Adverse Reactions: 3 Allergy/AdvReac Type Severity Reaction Status Date / Time No Known Allergies Allergy Verified 05/25/17 09:32 Procedures/tests Complete & Pending: Procedures Performed prior 72 hours Category Date Time Status EV echocardiogram Routine Y 05/25/17 13:19 Completed Date of admission: 05/25/17 11:36 Primary care physician: Lanie Sandhu CNP Consults: 05/25/17 13:14 Consult to Head Start Director [CONS] Routine Reason for SW Consult: Please assess patient for possible home needs for post -discharge planniNG Cardiology Discharging clinician: April Mckinnon Anticipated date of discharge: 05/27/17 - Patient Status Disposition: Home, Self-Care Condition: Fair Functional capacity at discharge: independent ambulation Overall status at discharge: patient is progressing back to baseline - Discharge Instructions Instructions: Heart Failure (DC), Atrial Fibrillation (DC) Follow Up With: Lanie Sandhu CNP [Primary Care Provider] - Antoni Rasheed MD [Partnered Physician] - - Diet and Activity Activity: increase activity as tolerated Diet: low salt diet Hospital course: Ms. Tarango is a 82 year old female past medical history past medical history of atrial fibrillation Hypertension presented to the ER with complaints of increasing shortness of breath for the past 3 weeks 7 pound weight gain over the past week she was initially started on Lasix 60 mg IV twice a day however she was pushed over to Bumex 1 mg daily per cardiology she was placed on strict I's and O's fluid restriction she did lose approximately 2-1/2 kg. He did have some hypokalemia which was replaced and potassium increased to 40 mEq daily She is feeling much better denies any chest pain shortness of breath lower extremity edema improved. She is hemodynamically stable at this time she is to be discharged and to follow up with cardiology as outpatient. I did review medications follow-ups advised low salt diet monitoring fluids monitoring weight daily. Patient verbalized understanding she is hemodynamically stable and ready for discharge Time spent discussing smoking cessation with patient: 3 to 10 minutes - Time Spent with Patient Total time spent providing and/or coordinating discharge services: - Constitutional Vitals: Temp Pulse Resp BP Pulse Ox 97.9 F 73 18 140/81 93 05/27/17 07:15 05/27/17 07:15 05/27/17 07:15 05/27/17 07:15 05/27/17 07:15 General appearance: Present: cooperative, A&O X 3, morbidly obese, pleasant, no acute distress, answers questions appropriately - Head Head exam: Present: atraumatic, normocephalic - Eye Eye exam: Present: PERRL, conjuntiva pink, sclera anicteric Pupils: Present: PERRL - Neck Neck exam general surgery: Present: supple, trachea midline. Absent: lymphadenopathy - Respiratory Respiratory exam: Present: CTAB. Absent: accessory muscle use, rales, rhonchi, wheezes - Cardiovascular Cardiovascular exam: Present: RRR, +S1, +S2. Absent: diastolic murmur, gallop, rubs, systolic murmur - GI/Abdominal GI/Abdominal exam: Present: normal bowel sounds, soft, no peritoneal signs. Absent: distended, tenderness - Extremities Exam Extremities exam: Present: warm, radial pulses palpable and symmetrical. Absent : calf tenderness, cyanotic, pedal edema - Neurological Exam Neurological exam: Present: CN II-XII intact, oriented X3, no focal deficits. Absent: pronater drift, facial droop, speech deficit - Skin Skin exam: Present: dry, intact
[2017-05-27 12:50] VITALS: BP 131/78
[2017-05-27] MEDS ORDERED: *HR* Warfarin 2.5 MG TABLET PO ONE (18:00)
== END 2017-05-27 15:30 | disposition home or self-care (01) ==
LOC: 3BNU 09:24 → EMEROO 09:24 → 3BNU 11:53
PROVIDERS: ADMIT Internal Medicine Cardiovascular Disease; ATTEND Registered Nurse

== ENCOUNTER 2018-01-02 11:21 | Observation (INO) ==
[2018-01-02] MEDS ORDERED: Furosemide 40 MG/4 ML VIAL IVP ONE (11:37)
[2018-01-02 11:54] LABS: Basophils # 0.1 K/mcL (0.0-0.2); Basophils % 0.8 %; Eosinophils # 0.1 K/mcL (0.0-0.6); Eosinophils % 1.8 %; Hematocrit 42.5 % (35.3-44.9); Hemoglobin 14.1 g/dL (11.5-15.4); Immature Granulocytes % 1.5 % (0-4); Lymphocytes # 1.3 K/mcL (0.6-4.6); Lymphocytes % 21.5 %; Mean Corpuscular HGB Conc 33.2 g/dL (31.6-35.5); Mean Corpuscular Hemoglobin 29.4 pg (28.0-33.3); Mean Corpuscular Volume 88.7 fL (83.0-100.0); Mean Platelet Volume 9.7 fL (9.4-12.4); Monocytes # 0.5 K/mcL (0.0-1.3); Monocytes % 8.3 %; Platelet Count 204 K/mcL (140-400); Red Blood Count 4.79 M/mcL (3.82-4.97); Segmented Neutrophils % 66.1 %
[2018-01-02 12:15] LABS: INR 2.5; Prothrombin Time 28.3 Seconds (9.4-12.1)
[2018-01-02 12:16] LABS: Troponin I < 0.03 ng/mL (< 0.04)
[2018-01-02 12:17] LABS: BUN/Creatinine Ratio 15 (6-26); Blood Urea Nitrogen 13 mg/dL (8-23); Calcium 8.8 mg/dL (8.6-10.3); Carbon Dioxide 32 mEq/L (23-29); Chloride 103 mEq/L (98-107); Glucose 147 mg/dL (70-105); Osmolality,Calculated 295 (280-300); Potassium 4.2 mEq/L (3.5-5.1); Sodium 141 mEq/L (136-145); eGFR For Non-African Americans > 60 (> 60)
[2018-01-02 12:30] LABS: Bilirubin,Urine Negative (Negative); Blood,Urine Negative (Negative); Clarity,Urine Clear (Clear); Color,Urine Yellow (Yellow); Glucose,Urine (UA) Normal (Normal); Ketones,Urine Negative (Negative); Leukocyte Esterase,Urine Negative (Negative); Nitrite,Urine Negative (Negative); PH,Urine 7.5 pH Units (5.0-8.0); Protein,Urine Negative (Neg-Trace); Specific Gravity,Urine 1.007 (1.010-1.025); Urobilinogen,Urine Normal (Normal)
--- NOTE | 2018-01-02 13:12 | Emergency Department Note ---
Disposition Clinical Impression: CHF (congestive heart failure), Orthopnea Disposition: Admitted As Inpatient Condition: Fair Forms: ED Satisfaction Letter Time of Disposition: 13:23 General Adult HPI - General Chief complaint: ED Shortness of Breath/Dyspnea Stated complaint: JAIMN,Bi-lateral leg weakness Time Seen by Provider: 01/02/18 11:28 Source: patient Mode of arrival: ambulatory Limitations: no limitations Nursing Notes Reviewed: Yes Vital Signs Reviewed: Yes - History of Present Illness HPI Narrative: Patient presents emergency room with complaint of shortness of breath generalized weakness as well as orthopnea. She has had a history of congestive heart failure and atrial fibrillation. She has noticed the symptoms coming on over the last week. Denies any chest pain fevers chills nausea vomiting or diarrhea. No headache or vision change. Patient decided to come in today because it was given to the point where it is disrupting her sleep. Onset (ago): day(s) Radiation: non-radiation Pain Scale: 0 Consistency: intermittent Improves with: rest Worsens with: movement Associated symptoms: Reports: shortness of breath Treatments Prior to Arrival: none - Related Data Home Medications Medication Instructions Recorded Confirmed Aspirin 81 mg PO QAM 05/14/15 05/25/17 Metoprolol [Lopressor] 100 mg PO BID 05/14/15 05/25/17 Warfarin [Coumadin] 2.5 mg PO QPM 05/14/15 05/25/17 Previous Rx's Medication Instructions Recorded Bumetanide [Bumex] 1 mg PO DAILY #30 tablet 05/27/17 Potassium Chloride 40 meq PO DAILY #30 tab.er.prt 05/27/17 Allergies Allergy/AdvReac Type Severity Reaction Status Date / Time No Known Allergies Allergy Verified 05/25/17 09:32 All systems ED: reviewed and negative except as stated. Review of Systems: As Per HPI Constitutional: Reports: weight change. Denies: fever, chills, weakness ENT ED: Denies: ear pain, throat pain, dental pain Cardiovascular: Reports: dyspnea on exertion, orthopnea, edema. Denies: chest pain, palpitations Respiratory: Reports: dyspnea. Denies: cough, wheezes Gastrointestinal: Denies: abdominal pain, nausea, vomiting, diarrhea Genitourinary: Denies: urgency, dysuria Musculoskeletal: Denies: back pain Neurological: Denies: headache, weakness, numbness Past Medical History - Past Medical History Attestation: Yes The following information was validated with the patient. Source: patient Medical history: Reports: atrial fibrillation, CHF, hypertension Surgical history: Reports: cholecystectomy, hysterectomy (Total) Psychiatric history: Reports: no psych history - Social History Smoking Status: Never smoker Smokeless Tobacco Status: No Alcohol use: Reports: none Drug use: Reports: none Physical Exam - General Limitations: no limitations General appearance: alert - Head Head exam: atraumatic, normocephalic, normal inspection - Eye Eye exam: Present: normal appearance, PERRL, EOMI - ENT ENT exam: normal exam, normal oropharynx, mucous membranes moist - Neck Neck exam: Present: normal inspection, full ROM, trachea midline - Chest Chest inspection: Present: normal inspection, symmetric chest wall rise - Respiratory Respiratory exam: Present: normal lung sounds bilaterally. Absent: respiratory distress, wheezes, stridor, accessory muscle use - Cardiovascular Cardiovascular exam: Present: regular rate, normal rhythm, normal heart sounds - Abdominal Exam Abdominal exam: Present: soft, Non-Tender, normal bowel sounds. Absent: tenderness, distention, guarding, rebound, rigidity - Extremities Exam Extremities exam: Present: normal inspection, full ROM, normal capillary refill , pedal edema. Absent: tenderness - Back Exam Back exam: Present: normal inspection, full ROM. Absent: tenderness - Neurological Exam Neurological exam: Present: alert, oriented X3, CN II-XII intact, normal gait - Skin Skin exam: Present: warm, dry, intact, normal color Course Course Narrative: Patient seen and examined the time of arrival. See history of present illness. A 82-year-old female presents to emergency room for orthopnea shortness of breath is been coming on over the last week. Denies any other recent illnesses trauma or injury. She does have a history of congestive heart failure. Currently denying any chest pain fevers chills nausea vomiting or diarrhea. Denies any headache or vision change. She has not fallen or injured herself. Patient has not had a cardiac evaluation and multiple years. No recent stress test or echo. She does have history of atrial fibrillation that appears to be rhythm controlled at this point and is on Coumadin. Visible exam is otherwise unremarkable this time is atraumatic pupils are round reactive oropharynx is patent trachea is midline. No stridor no trismus. Lungs are clear to auscultation anterior-posterior listing ramirez. Heart is regular and bradycardic. Abdomen is soft nontender nondistended with no guarding no rigidity and no peritoneal symptoms. No point tenderness or pulsatile masses noted. Patient has the ability to move her upper and lower extremities symmetrically with no deficits at this time. She does have slight pitting edema in the lower extremities up to the midshin. She has normal pulses and sensation noted. Concern is noted for fluid overload causing orthopnea and shortness of breath. Single dose of IV Lasix will be given here in conjunction with her home medications along with evaluation with chest x-ray EKG CBC chemistry troponin and BNP. Urinalysis will also be collected. Disposition will most likely be admission after the full workup treatment course and evaluation are completed. Patient is otherwise clinically stable at this time. Disposition pending treatment course - Reevaluation(s) Reevaluation #1: Patient has a slightly elevated BNP but it is not the worst it has ever been in the past. Chest x-ray does not show any acute findings concerning for fluid overload. Patient is still describing orthopnea and shortness of breath with exertion. She has not had any aspects of chest pain throughout the entire treatment course. EKG was reviewed and does not show any acute etiology at this time. Patient will be admitted for definitive evaluation symptomatically control. No other acute medical intervention required at this time. Hospitalist was paged at this point for admission Time: 13:21 Reevaluation #2: Patient was discussed with the hospitalist. Detailed review the presentation symptoms as well as the possibility symptomatic bradycardia versus CHF exacerbation discussed and reviewed. No other recommendations were noted this time. Patient will be observed here in the emergency room to the admission process is completed Time: 13:48 Vital Signs Temperature 97.9 F 01/02/18 11:25 Pulse Rate 68 01/02/18 11:25 Respiratory Rate 18 01/02/18 11:25 Blood Pressure 146/94 01/02/18 11:25 O2 Sat by Pulse Oximetry 93 01/02/18 11:25 Temperature 97.9 F 01/02/18 11:45 Pulse Rate 68 01/02/18 11:45 Respiratory Rate 18 01/02/18 11:45 Blood Pressure 146/94 01/02/18 11:45 O2 Sat by Pulse Oximetry 93 01/02/18 11:45 Oxygen Delivery Oxygen Delivery Room Air Medical Decision Making - MDM Narrative Medical decision making narrative: Shortness of breath, orthopnea, congestive heart failure - Medical Records Medical records reviewed: Yes I reviewed the patient's medical records. - Lab Data Lab results reviewed: Yes I reviewed the patient's lab results. Result diagrams: 01/02/18 11:37 01/02/18 11:37 Lab Results 01/02/18 01/02/18 01/02/18 Range/Units 11:37 11:37 11:37 WBC 6.0 (4.3-11.1) K/mcL RBC 4.79 (3.82-4.97) M/mcL Hgb 14.1 (11.5-15.4) g/dL Hct 42.5 (35.3-44.9) % MCV 88.7 (83.0-100.0) fL MCH 29.4 (28.0-33.3) pg MCHC 33.2 (31.6-35.5) g/dL RDW 14.0 (11.5-14.5) % Plt Count 204 (140-400) K/mcL MPV 9.7 (9.4-12.4) fL Immature Gran % 1.5 (0-4) % Seg Neutrophils % 66.1 % Lymphocytes % 21.5 % Monocytes % 8.3 % Eosinophils % 1.8 % Basophils % 0.8 % Neutrophils # 4.0 (1.6-8.9) K/mcL Lymphocytes # 1.3 (0.6-4.6) K/mcL Monocytes # 0.5 (0.0-1.3) K/mcL Eosinophils # 0.1 (0.0-0.6) K/mcL Basophils # 0.1 (0.0-0.2) K/mcL PT (9.4-12.1) Seconds INR Sodium 141 (136-145) mEq/L Potassium 4.2 (3.5-5.1) mEq/L Chloride 103 (98-107) mEq/L Carbon Dioxide 32 H (23-29) mEq/L BUN 13 (8-23) mg/dL Creatinine 0.87 (0.60-1.20) mg/dL Est GFR ( Amer) > 60 (> 60) Est GFR (Non-Af Amer) > 60 (> 60) BUN/Creatinine Ratio 15 (6-26) Glucose 147 H (70-105) mg/dL Calculated Osmolality 295 (280-300) Lactic Acid (0.5-2.2) mmol/L Calcium 8.8 (8.6-10.3) mg/dL Troponin I < 0.03 (< 0.04) ng/mL B-Natriuretic Peptide 246 H (Less than 100) pg/mL Urine Color (Yellow) Urine Clarity (Clear) Urine pH (5.0-8.0) pH Units Ur Specific Carbon (1.010-1.025) Urine Protein (Neg-Trace) mg/dL Urine Glucose (UA) (Normal) mg/dL Urine Ketones (Negative) mg/dL Urine Blood (Negative) Urine Nitrite (Negative) Urine Bilirubin (Negative) Urine Urobilinogen (Normal) mg/dL Ur Leukocyte Esterase (Negative) Ur Culture Indicated? (NO) 01/02/18 01/02/18 01/02/18 Range/Units 11:38 11:45 12:22 WBC (4.3-11.1) K/mcL RBC (3.82-4.97) M/mcL Hgb (11.5-15.4) g/dL Hct (35.3-44.9) % MCV (83.0-100.0) fL MCH (28.0-33.3) pg MCHC (31.6-35.5) g/dL RDW (11.5-14.5) % Plt Count (140-400) K/mcL MPV (9.4-12.4) fL Immature Gran % (0-4) % Seg Neutrophils % % Lymphocytes % % Monocytes % % Eosinophils % % Basophils % % Neutrophils # (1.6-8.9) K/mcL Lymphocytes # (0.6-4.6) K/mcL Monocytes # (0.0-1.3) K/mcL Eosinophils # (0.0-0.6) K/mcL Basophils # (0.0-0.2) K/mcL PT 28.3 H (9.4-12.1) Seconds INR 2.5 Sodium (136-145) mEq/L Potassium (3.5-5.1) mEq/L Chloride (98-107) mEq/L Carbon Dioxide (23-29) mEq/L BUN (8-23) mg/dL Creatinine (0.60-1.20) mg/dL Est GFR ( Amer) (> 60) Est GFR (Non-Af Amer) (> 60) BUN/Creatinine Ratio (6-26) Glucose (70-105) mg/dL Calculated Osmolality (280-300) Lactic Acid 1.6 (0.5-2.2) mmol/L Calcium (8.6-10.3) mg/dL Troponin I (< 0.04) ng/mL B-Natriuretic Peptide (Less than 100) pg/mL Urine Color Yellow (Yellow) Urine Clarity Clear (Clear) Urine pH 7.5 (5.0-8.0) pH Units Ur Specific Carbon 1.007 L (1.010-1.025) Urine Protein Negative (Neg-Trace) mg/dL Urine Glucose (UA) Normal (Normal) mg/dL Urine Ketones Negative (Negative) mg/dL Urine Blood Negative (Negative) Urine Nitrite Negative (Negative) Urine Bilirubin Negative (Negative) Urine Urobilinogen Normal (Normal) mg/dL Ur Leukocyte Esterase Negative (Negative) Ur Culture Indicated? NO (NO) - Radiology Data Radiology results reviewed: Yes I reviewed the patient's radiology results. Right-sided aortic arch noted no acute signs of pulmonary congestion or pleural effusion - EKG Data EKG #1 EKG attestation: Yes I reviewed and interpreted this EKG. EKG results narrative: EKG shows sinus rhythm with a heart rate of 56. SC interval 172. QRS duration of 80. QTC of 426. [place] appears to be normal. No acute signs of WPW or Brugada syndrome. T-wave inversion noted in lead V2 which is similar in comparison to previous EKG on 05/25/17. No acute etiology noted at this time no acute signs of ST segment elevation or abnormality.
--- NOTE | 2018-01-02 17:18 | Internal Med History&Physical ---
Date of Encounter: 01/02/18 Time of Encounter: 17:20 Internal Medicine - H&P: HPI Admitted From: Home Plans for Post Hospital Care: Home History of present illness: Ms. Tarango is a 82 year old female with past medical history of diastolic CHF NYHA class 2, atrial fibrillation, hypokalemia, and orthopnea. Pt presents with progressive sOB that started Mon12/29/2017. Pt's Bumex dose was recently adjusted /decreased. Pt also reports orthopnea and worsening LE edema. Pt's duagther at bedside. Pt states symptoms much improved following one time dose IV Lasix given in ED. She denies CP in recent couple of days. Pt is on Coumadin for atrial fibrillation. In ED CBC reviewed and wnl. PT 27.1, INR 2.4. BMP; BUN 15, Cr 0.85. Troponin <0.03, BNP 246. Urine analysis neg for infection. Chest x ray XR/XR chest 1V portable IMPRESSION: Stable cardiomegaly and right-sided aortic arch. No acute abnormality. CODE STATUS FULL Past Med Surg Social Fam HX - Past Medical History Medical history: atrial fibrillation, CHF, hypertension Additional medical history: Gout, carpel tunnel Psychiatric history: no psych history - Past Surgical History Surgical History: cholecystectomy, hysterectomy Additional surgical history: T&A, rt carpel tunnel sx - Social History Smoking Status: Never smoker Smokeless Tobacco Status: No Alcohol use: none Drug use: none - Family History Brother Family Member Ethnicity: Non- Living Status: Hx Family GI Disorders: Yes (pancreatitis) Hx Family Endocrine Disorder: Yes (Pancreatic problems) Sister Family Member Ethnicity: Non- Living Status: Hx Family Cardiac Disorders: Yes (IA) Hx Family Endocrine Disorder: Yes (DM) Mother Family Member Ethnicity: Non- Living Status: Hx Family Cardiac Disorders: Yes (IA) Hx Family Endocrine Disorder: Yes (diabetes) Father Family Member Ethnicity: Non- Living Status: Hx Family Cardiac Disorders: Yes (Stroke) Hx Family Neurologic Disorders: Yes (TIA) Internal Medicine - H&P: Meds Aspirin 81 mg PO QAM 05/14/15 [History] Metoprolol [Lopressor] 100 mg PO BID 05/14/15 [History] Warfarin [Coumadin] 2.5 mg PO QPM 05/14/15 [History] Bumetanide [Bumex] 1 mg PO DAILY #30 tablet 05/27/17 [Rx] Potassium Chloride 20 meq PO DAILY 01/02/18 [History] 3 Allergy/AdvReac Type Severity Reaction Status Date / Time No Known Allergies Allergy Verified 05/25/17 09:32 All Systems PM: A 10-system review of systems was performed and is negative for pertinent findings except as documented above in the HPI. - Constitutional Vitals: Temp Pulse Resp BP Pulse Ox 97.9 F 56 19 117/70 94 01/02/18 11:45 01/02/18 15:20 01/02/18 15:20 01/02/18 15:20 01/02/18 15:20 General appearance: Present: A&O X 3, morbidly obese, no acute distress Exam: see below - Head Head exam: Present: atraumatic, normocephalic - Eye Eye exam: Present: PERRL, conjuntiva pink, sclera anicteric Pupils: Present: PERRL - Neck Neck exam general surgery: Present: supple, trachea midline. Absent: lymphadenopathy - Respiratory Respiratory exam: Present: CTAB. Absent: accessory muscle use, rales, rhonchi, wheezes - Cardiovascular Cardiovascular exam: Present: RRR, +S1, +S2. Absent: diastolic murmur, gallop, rubs, systolic murmur - GI/Abdominal GI/Abdominal exam: Present: normal bowel sounds, soft, no peritoneal signs. Absent: distended, tenderness - Extremities Exam Extremities exam: Present: pedal edema, warm, radial pulses palpable and symmetrical. Absent: calf tenderness, cyanotic - Neurological Exam Neurological exam: Present: CN II-XII intact, oriented X3, no focal deficits. Absent: pronater drift, facial droop, speech deficit - Skin Skin exam: Present: dry, intact Internal Med - H&P Results - Labs CBC & Chem 7: 01/02/18 11:37 01/03/18 06:24 - Assessment and plan (1) Acute exacerbation of congestive heart failure Current Visit: Yes Status: Acute Assessment and plan: Pt has already significantly improved following her one time dose IV Lasix given in ED. Lasix 20 mg IV BID. Will order echo. Salt and fluid restriction. Daily weights and strict I and O's. Qualifiers: Heart failure type: diastolic Qualified Code(s): I50.33 - Acute on chronic diastolic (congestive) heart failure (2) Atrial fibrillation Current Visit: No Status: Chronic Assessment and plan: Therapeutic on Coumadin. Will monitor INR daily. Qualifiers: Atrial fibrillation type: paroxysmal Qualified Code(s): I48.0 - Paroxysmal atrial fibrillation (3) HTN (hypertension) Current Visit: Yes Status: Chronic Assessment and plan: Metoprolol Qualifiers: Hypertension type: essential hypertension Qualified Code(s): I10 - Essential (primary) hypertension (4) DVT prophylaxis Current Visit: Yes Status: Acute Assessment and plan: Coumadin - Time Spent With Patient Total time spent is greater than 50% in coordination of care (as documented) at patient's floor/unit and/or counseling patient: 25 - 35 minutes
[2018-01-02] MEDS: *HR* Warfarin 2.5 MG TABLET PO SCH (18:37)
[2018-01-02] MEDS: Metoprolol 100 MG TABLET PO SCH (21:14)
[2018-01-02] MEDS: Furosemide 20 MG/2 ML VIAL IVP SCH (21:14)
--- NOTE | 2018-01-02 21:26 | Electrocardiograph Report ---
[place] [employer] [facility] Test Date: 2018-01-02 Pat Name: Pushpa Tarango Department: [id number] Room: 2A11 Gender: F [employer]: : 1935 Requested By: Alexis Rivera Order Number: [id number] Reading MD: Kurtis Grady Measurements Intervals [place] Rate: 56 P: 41 ND: 172 QRS: 24 QRSD: 88 T: 46 QT: 441 QTc: 426 Interpretive Statements Sinus rhythm Supraventricular bigeminy Low voltage, precordial leads Electronically Signed On 01-02-2018 21:24:34 EDT by Kurtis Grady
[2018-01-03] MEDS: Acetaminophen 325 MG TABLET PO PRN ×2 (03:08→10:50)
[2018-01-03 06:49] LABS: INR 2.4; Prothrombin Time 27.1 Seconds (9.4-12.1)
[2018-01-03 07:03] LABS: BUN/Creatinine Ratio 18 (6-26); Blood Urea Nitrogen 15 mg/dL (8-23); Calcium 8.9 mg/dL (8.6-10.3); Carbon Dioxide 31 mEq/L (23-29); Chloride 101 mEq/L (98-107); Glucose 157 mg/dL (70-105); Osmolality,Calculated 294 (280-300); Potassium 3.6 mEq/L (3.5-5.1); Sodium 140 mEq/L (136-145); eGFR For Non-African Americans > 60 (> 60)
[2018-01-03] MEDS: Metoprolol 100 MG TABLET PO SCH ×2 (07:33→20:53)
[2018-01-03] MEDS: Aspirin 81 MG TAB.CHEW PO SCH (07:33)
[2018-01-03] MEDS: Furosemide 20 MG/2 ML VIAL IVP SCH ×2 (07:33→17:08)
--- NOTE | 2018-01-03 07:57 | Internal Med Progress Note ---
Hospitalist Progress Note - Encounter Date of Encounter: 01/03/18 Time of Encounter: 07:54 - Subjective Interval History: Patient seen and examined at bedside. Patient in no acute overnight events. Patient admitted for acute exacerbation of heart failure. Patient states that she feels much improved with diuresis, and is urinating a lot. Patient denies any chest pain palpitations however admits to continued shortness of breath with exertion and orthopnea however she states that her orthopnea is chronic however it was worsening recently. Patient states that she was recently taken off her Bumex or had the dose decreased to every other day due to improvement of leg swelling. Patient has been afebrile, denies any nausea, vomiting, diarrhea. - Exam Vitals: Temp Pulse Resp BP Pulse Ox 97.9 F 65 18 136/79 91 01/03/18 07:09 01/03/18 07:09 01/03/18 07:09 01/03/18 07:09 01/03/18 07:09 Exam: Constitutional: No acute distress, Alert Psych: AAO x 3 HEENT: NCAT, EOMI Neck: supple Cardio: Irregularly irregular with controlled rate, +s1s2, no murmurs/rubs/ gallops, jvd difficult to appreciate due to habitus Resp: decreased breath sounds in bases, bibasilar crackles Abd: soft, non tender/non distended, positive bowel sounds, no gaurding/reboud/ ridgitity Extremities: no clubbing/cyanosis/edema appreciated Neuro: no focal deficits appreciated - Assessment and Plan (1) Acute exacerbation of congestive heart failure Current Visit: Yes Status: Acute Assessment and Plan: Acute exerbation of HFpEF -EF 55-60-% 05/2017 -nearly compensated -continue IV diuresis and change to orals tomorrow -strict I&Os, negative balance since admission -continue BB and ASA (2) HTN (hypertension) Current Visit: Yes Status: Chronic Assessment and Plan: BP elevated at admisson, improved now -continue home meds -monitor (3) PAF (paroxysmal atrial fibrillation) Current Visit: Yes Status: Chronic Assessment and Plan: Hx of PAF Rate controlled Continue Coumadin for AC Continue BB for rate controll (4) DVT prophylaxis Current Visit: Yes Status: Acute Assessment and Plan: coumadin DVT Prophylaxis: coumadin - Time Spent with Patient Total time spent is greater than 50% in coordination of care (as documented) at patient's floor/unit and/or counseling patient: 25 - 35 minutes Plan of Care Discussed with: patient Internal Medicine: Result - Labs CBC & Chem 7: 01/02/18 11:37 01/03/18 06:24 Labs: BMP 01/03/18 06:24 Sodium 140 Potassium 3.6 Chloride 101 Carbon Dioxide 31 H BUN 15 Creatinine 0.85 Glucose 157 H Calcium 8.9 - ABG Interpretation ABG results: PT/INR, D-dimer PT 27.1 Seconds (9.4-12.1) H 01/03/18 06:24 Consult Discharge Plan - Plan Referrals: Lanie Sandhu, SET UP AND LAY OUT INSPECTOR [Primary Care Provider] - (1) Acute exacerbation of congestive heart failure Qualifiers: Heart failure type: diastolic Qualified Code(s): I50.33 - Acute on chronic diastolic (congestive) heart failure (2) HTN (hypertension) Qualifiers: Hypertension type: essential hypertension Qualified Code(s): I10 - Essential (primary) hypertension
[2018-01-03] MEDS ORDERED: Naloxone 0.4 MG/ML INJ IVP PRN (07:59)
[2018-01-03 16:41] LABS: Thyroid Stimulating Hormone 3.608 mcIU/mL (0.340-5.600)
[2018-01-03] MEDS: *HR* Warfarin 2.5 MG TABLET PO SCH (17:07)
[2018-01-03] MEDS ORDERED: Warfarin perPT PO PRN (18:00)
[2018-01-03] MEDS ORDERED: Melatonin 3 MG TABLET PO SCH (21:00)
[2018-01-04 05:02] LABS: Basophils # 0.1 K/mcL (0.0-0.2); Basophils % 0.7 %; Eosinophils # 0.2 K/mcL (0.0-0.6); Eosinophils % 2.1 %; Hematocrit 40.2 % (35.3-44.9); Hemoglobin 13.1 g/dL (11.5-15.4); Immature Granulocytes % 1.3 % (0-4); Lymphocytes # 2.2 K/mcL (0.6-4.6); Lymphocytes % 28.4 %; Mean Corpuscular HGB Conc 32.6 g/dL (31.6-35.5); Mean Corpuscular Hemoglobin 28.2 pg (28.0-33.3); Mean Corpuscular Volume 86.6 fL (83.0-100.0); Monocytes # 0.7 K/mcL (0.0-1.3); Monocytes % 9.6 %; Neutrophils # 4.4 K/mcL (1.6-8.9); Platelet Count 202 K/mcL (140-400); Red Blood Count 4.64 M/mcL (3.82-4.97); Red Cell Distribution Width 14.2 % (11.5-14.5); Segmented Neutrophils % 57.9 %
[2018-01-04 05:07] LABS: INR 2.1; Prothrombin Time 23.9 Seconds (9.4-12.1)
[2018-01-04 05:22] LABS: BUN/Creatinine Ratio 23 (6-26); Blood Urea Nitrogen 20 mg/dL (8-23); Calcium 8.8 mg/dL (8.6-10.3); Carbon Dioxide 30 mEq/L (23-29); Chloride 102 mEq/L (98-107); Glucose 158 mg/dL (70-105); Osmolality,Calculated 296 (280-300); Potassium 3.5 mEq/L (3.5-5.1); Sodium 140 mEq/L (136-145); eGFR For Non-African Americans > 60 (> 60)
--- NOTE | 2018-01-04 08:00 | Discharge Summary ---
- NOTES TO OUTPATIENT PROVIDER Notes to Outpatient Provider: Patient admitted for acute exacerbation of diastolic congestive heart failure; improved with IV diuresis. We will discharge on 1 mg Bumex daily until follow-up with primary care doctor at which point determination can be made to continue daily diuretic or every other day as she was previously on. Date of Encounter: 01/04/18 Time of Encounter: 07:57 - Discharge Diagnosis (1) Acute exacerbation of congestive heart failure Priority: Primary Status: Acute Qualifiers: Heart failure type: diastolic Qualified Code(s): I50.33 - Acute on chronic diastolic (congestive) heart failure (2) HTN (hypertension) Priority: Secondary Status: Chronic Qualifiers: Hypertension type: essential hypertension Qualified Code(s): I10 - Essential (primary) hypertension (3) PAF (paroxysmal atrial fibrillation) Priority: Secondary Status: Chronic (4) DVT prophylaxis Priority: Secondary Status: Acute Hospital course: Ms. Tarango is a 82 year old female who presented to the hospital with shortness of breath progressive dyspnea on exertion and orthopnea. The patient was found to be in acute exacerbation of diastolic heart failure. The patient was diuresed with IV diuretics and improved throughout her stay. The patient was transitioned back to her oral Bumex 1 mg. The patient was recently taking this once every other day; at discharge instructions the patient to take this daily until follow-up with primary care physician at which point decision can be made to continue daily Bumex or to change back to every other day. Patient agreeable was stable for discharge on 01/04/2018 and all questions answered. Follow-up with primary care physician within one week. Discharge discussed with: patient, nurse - Time Spent with Patient Total time spent providing and/or coordinating discharge services: Greater than 30 minutes - Discharge Medications Prescriptions: Melatonin 3 mg PO HS 30 Days #30 tablet Home Medications: Aspirin 81 mg PO QAM 05/14/15 [History] Metoprolol [Lopressor] 100 mg PO BID 05/14/15 [History] Warfarin [Coumadin] 2.5 mg PO QPM 05/14/15 [History] Bumetanide [Bumex] 1 mg PO DAILY #30 tablet 05/27/17 [Rx] Potassium Chloride 20 meq PO DAILY 01/02/18 [History] Melatonin 3 mg PO HS 30 Days #30 tablet 01/04/18 [Rx] Allergies/Adverse Reactions: 3 Allergy/AdvReac Type Severity Reaction Status Date / Time No Known Allergies Allergy Verified 05/25/17 09:32 Date of admission: 01/02/18 14:29 Primary care physician: Lanie Sandhu CNP Consults: 01/02/18 17:14 Consult to Cardiac Rehabilitation-Phase1 [CONS] Routine Comment: Reason for Consult: heart failure Call Completed: Yes Consult to Nurse Navigator [CONS] Routine Comment: - Constitutional Vitals: Temp Pulse Resp BP Pulse Ox 98 F 59 16 109/75 90 01/04/18 04:39 01/04/18 04:39 01/04/18 04:39 01/04/18 04:39 01/04/18 04:39 General appearance: Present: A&O X 3, morbidly obese, no acute distress Exam: Constitutional: No acute distress, Alert Psych: AAO x 3 HEENT: NCAT, EOMI Neck: supple, no JVD Cardio: regular rate and rhythm, +s1s2 Resp: clear to ascultation bilaterally Abd: soft, non tender/non distended Extremities: no clubbing/cyanosis/edema appreciated Neuro: no focal deficits appreciated - Patient Status Disposition: Home, Self-Care Condition: Good Functional capacity at discharge: independent ambulation Overall status at discharge: patient is back to baseline - Discharge Instructions Instructions: Heart Failure (DC) Follow Up With: Lanie Sandhu CNP [Primary Care Provider] - - Diet and Activity Activity: increase activity as tolerated Diet: advance to your usual diet
[2018-01-04 08:38] VITALS: BP 115/72
[2018-01-04] MEDS: Aspirin 81 MG TAB.CHEW PO SCH (08:47)
[2018-01-04] MEDS: Metoprolol 100 MG TABLET PO SCH (08:47)
[2018-01-04] MEDS ORDERED: Fluticasone Propionate Nasal 50 MCG/SPRAY BOTTLE NS SCH (09:00)
[2018-01-04] MEDS ORDERED: Bumetanide 1 MG TABLET PO SCH (09:00)
== END 2018-01-04 09:40 | disposition home or self-care (01) ==
LOC: EMEROOARM 11:21 → 2ANU 11:21
PROVIDERS: ADMIT Internal Medicine; ATTEND Student in an Organized Health Care Education/Training Program

== ENCOUNTER 2020-01-26 09:04 | Inpatient (IN) ==
[2020-01-26] MEDS ORDERED: *HR* Metoprolol 5 MG/5 ML VIAL IVP ONE ×2 (09:28→10:30)
[2020-01-26 09:46] LABS: Basophils # 0.1 K/mcL (0.0-0.2); Basophils % 0.8 %; Eosinophils # 0.1 K/mcL (0.0-0.6); Eosinophils % 1.5 %; Hemoglobin 14.3 g/dL (11.5-15.4); Immature Granulocytes % 1.2 % (0-4); Lymphocytes # 1.4 K/mcL (0.6-4.6); Lymphocytes % 21.1 %; Mean Corpuscular HGB Conc 31.1 g/dL (31.6-35.5); Mean Corpuscular Hemoglobin 27.9 pg (28.0-33.3); Mean Corpuscular Volume 89.8 fL (83.0-100.0); Mean Platelet Volume 9.9 fL (9.4-12.4); Monocytes # 0.7 K/mcL (0.0-1.3); Monocytes % 10.8 %; Neutrophils # 4.2 K/mcL (1.6-8.9); Platelet Count 223 K/mcL (140-400); Red Blood Count 5.12 M/mcL (3.82-4.97); Segmented Neutrophils % 64.6 %; White Blood Count 6.5 K/mcL (4.3-11.1)
[2020-01-26 09:50] LABS: INR 1.3; Prothrombin Time 14.5 Seconds (9.4-12.1)
[2020-01-26 09:52] LABS: Activated Partial Thrombo Time 36.5 Seconds (26.0-36.0)
[2020-01-26 10:06] LABS: BUN/Creatinine Ratio 15 (6-26); Blood Urea Nitrogen 13 mg/dL (8-23); Calcium 8.6 mg/dL (8.6-10.3); Carbon Dioxide 29 mEq/L (23-29); Chloride 102 mEq/L (98-107); Glucose 136 mg/dL (70-105); Osmolality,Calculated 294 (280-300); Potassium 3.5 mEq/L (3.5-5.1); Sodium 141 mEq/L (136-145); eGFR For African Americans > 60 (> 60); eGFR For Non-African Americans > 60 (> 60)
[2020-01-26 10:08] LABS: Troponin I < 0.03 ng/mL (< 0.04)
[2020-01-26 10:22] LABS: Thyroid Stimulating Hormone 6.787 mcIU/mL (0.340-5.600)
[2020-01-26] MEDS: DilTIAZem 50 MG/50 ML IV.SOLN IVC SCH ×3 (11:41→20:39)
[2020-01-26] MEDS ORDERED: Naloxone 0.4 MG/ML INJ IVP PRN (11:48)
[2020-01-26] MEDS ORDERED: Ondansetron 4 MG/2 ML VIAL IVP PRN (11:48)
[2020-01-26] MEDS ORDERED: Perflutren Lipid Microsphere 1.3 ML in 0.9 % Sodium Chloride 8.7 ML IVP PRN (11:52)
[2020-01-26] MEDS ORDERED: Potassium Chloride Elixir 20 MEQ/15 ML UDC PO ONE ×2 (12:43→14:38)
[2020-01-26] MEDS: Acetaminophen 325 MG TABLET PO PRN (17:21)
[2020-01-26] MEDS ORDERED: *HR* Enoxaparin 100 MG/ML SYRINGE SQ ONE (18:00)
[2020-01-26] MEDS ORDERED: Warfarin perPT PO PRN (18:00)
[2020-01-26] MEDS ORDERED: *HR* Warfarin 3 MG TABLET PO ONE (18:00)
[2020-01-26] MEDS: Metoprolol 100 MG TABLET PO SCH (20:23)
[2020-01-27] MEDS: Acetaminophen 325 MG TABLET PO PRN (01:56)
[2020-01-27 02:43] LABS: Basophils # 0.1 K/mcL (0.0-0.2); Basophils % 0.7 %; Eosinophils # 0.1 K/mcL (0.0-0.6); Eosinophils % 1.7 %; Hematocrit 43.6 % (35.3-44.9); Hemoglobin 13.4 g/dL (11.5-15.4); Immature Granulocytes % 0.8 % (0-4); Lymphocytes # 2.3 K/mcL (0.6-4.6); Lymphocytes % 32.1 %; Mean Corpuscular HGB Conc 30.7 g/dL (31.6-35.5); Mean Corpuscular Hemoglobin 28.3 pg (28.0-33.3); Mean Platelet Volume 10.3 fL (9.4-12.4); Monocytes # 0.7 K/mcL (0.0-1.3); Neutrophils # 3.9 K/mcL (1.6-8.9); Platelet Count 203 K/mcL (140-400); Red Blood Count 4.74 M/mcL (3.82-4.97); Red Cell Distribution Width 14.2 % (11.5-14.5); Segmented Neutrophils % 54.7 %; White Blood Count 7.1 K/mcL (4.3-11.1)
[2020-01-27 02:48] LABS: INR 1.5; Prothrombin Time 17.5 Seconds (9.4-12.1)
[2020-01-27 03:03] LABS: BUN/Creatinine Ratio 18 (6-26); Blood Urea Nitrogen 15 mg/dL (8-23); Calcium 8.5 mg/dL (8.6-10.3); Carbon Dioxide 27 mEq/L (23-29); Chloride 106 mEq/L (98-107); Glucose 132 mg/dL (70-105); Magnesium 1.9 mg/dL (1.6-2.6); Osmolality,Calculated 297 (280-300); Phosphorous 3.5 mg/dL (2.7-4.5); Potassium 3.8 mEq/L (3.5-5.1); Sodium 142 mEq/L (136-145); eGFR For African Americans > 60 (> 60); eGFR For Non-African Americans > 60 (> 60)
[2020-01-27] MEDS: DilTIAZem 50 MG/50 ML IV.SOLN IVC SCH ×2 (03:28→09:21)
[2020-01-27] MEDS: Metoprolol 100 MG TABLET PO SCH (08:29)
[2020-01-27] MEDS ORDERED: *HR* Warfarin 3 MG TABLET PO ONE (18:00)
[2020-01-27] MEDS: Metoprolol XL (24 HR) Succ 50 MG TAB.ER.24H PO SCH (19:56)
[2020-01-28] MEDS: DilTIAZem 50 MG/50 ML IV.SOLN IVC SCH ×3 (00:55→18:58)
[2020-01-28 01:33] LABS: Hematocrit 42.2 % (35.3-44.9); Hemoglobin 13.1 g/dL (11.5-15.4); Mean Corpuscular Hemoglobin 28.1 pg (28.0-33.3); Mean Corpuscular Volume 90.4 fL (83.0-100.0); Mean Platelet Volume 10.2 fL (9.4-12.4); Platelet Count 213 K/mcL (140-400); Red Blood Count 4.67 M/mcL (3.82-4.97); Red Cell Distribution Width 14.1 % (11.5-14.5); White Blood Count 6.8 K/mcL (4.3-11.1)
[2020-01-28 01:46] LABS: INR 1.5; Prothrombin Time 17.3 Seconds (9.4-12.1)
[2020-01-28 01:56] LABS: BUN/Creatinine Ratio 22 (6-26); Blood Urea Nitrogen 18 mg/dL (8-23); Calcium 8.8 mg/dL (8.6-10.3); Carbon Dioxide 26 mEq/L (23-29); Chloride 105 mEq/L (98-107); Glucose 160 mg/dL (70-105); Osmolality,Calculated 295 (280-300); Potassium 3.8 mEq/L (3.5-5.1); Sodium 140 mEq/L (136-145); eGFR For African Americans > 60 (> 60); eGFR For Non-African Americans > 60 (> 60)
[2020-01-28 02:07] LABS: Triiodothyronine (T3) Free 3.26 pg/mL (2.50-3.90)
[2020-01-28] MEDS ORDERED: Regadenoson 0.4 MG/5 ML SYRINGE IVP ONE (05:59)
[2020-01-28] MEDS: Metoprolol XL (24 HR) Succ 50 MG TAB.ER.24H PO SCH ×2 (07:57→19:56)
[2020-01-28] MEDS: Bumetanide 1 MG TABLET PO SCH (07:57)
[2020-01-28] MEDS ORDERED: *HR* Warfarin 3 MG TABLET PO ONE (18:00)
[2020-01-28] MEDS ORDERED: *HR* Warfarin 5 MG TABLET PO ONE (18:00)
[2020-01-29] MEDS: Acetaminophen 325 MG TABLET PO PRN ×3 (00:35→23:14)
[2020-01-29] MEDS: DilTIAZem 50 MG/50 ML IV.SOLN IVC SCH (01:44)
[2020-01-29 06:10] LABS: INR 1.7; Prothrombin Time 19.7 Seconds (9.4-12.1)
[2020-01-29] MEDS: Bumetanide 1 MG TABLET PO SCH (07:35)
[2020-01-29] MEDS: Metoprolol XL (24 HR) Succ 50 MG TAB.ER.24H PO SCH ×2 (07:35→20:16)
[2020-01-29] MEDS ORDERED: *HR* Metoprolol 5 MG/5 ML VIAL IVP PRN (08:36)
[2020-01-29] MEDS ORDERED: Regadenoson 0.4 MG/5 ML SYRINGE IVP ONE (10:11)
[2020-01-29] MEDS ORDERED: *HR* Warfarin 3 MG TABLET PO ONE (18:00)
[2020-01-30 02:31] LABS: Basophils % 0.5 %; Eosinophils # 0.1 K/mcL (0.0-0.6); Eosinophils % 1.5 %; Hematocrit 40.5 % (35.3-44.9); Hemoglobin 13.1 g/dL (11.5-15.4); Immature Granulocytes % 0.9 % (0-4); Lymphocytes % 23.4 %; Mean Corpuscular HGB Conc 32.3 g/dL (31.6-35.5); Mean Corpuscular Hemoglobin 28.9 pg (28.0-33.3); Mean Corpuscular Volume 89.2 fL (83.0-100.0); Mean Platelet Volume 10.5 fL (9.4-12.4); Monocytes # 0.8 K/mcL (0.0-1.3); Monocytes % 8.7 %; Neutrophils # 5.7 K/mcL (1.6-8.9); Platelet Count 209 K/mcL (140-400); Red Blood Count 4.54 M/mcL (3.82-4.97); White Blood Count 8.7 K/mcL (4.3-11.1)
[2020-01-30 02:40] LABS: INR 2.1; Prothrombin Time 24.3 Seconds (9.4-12.1)
[2020-01-30 02:50] LABS: Calcium 8.8 mg/dL (8.6-10.3); Magnesium 1.8 mg/dL (1.6-2.6); Potassium 3.7 mEq/L (3.5-5.1)
[2020-01-30] MEDS: Acetaminophen 325 MG TABLET PO PRN (04:54)
[2020-01-30 08:14] VITALS: BP 121/87
[2020-01-30] MEDS: Metoprolol XL (24 HR) Succ 50 MG TAB.ER.24H PO SCH (08:39)
[2020-01-30] MEDS: Bumetanide 1 MG TABLET PO SCH (08:39)
[2020-01-30] MEDS ORDERED: FLU Vac QV 20-21 (6Month+)/PF 0.5 ML SYRINGE IM ONE (08:49)
[2020-01-30] MEDS ORDERED: DilTIAZem CD (24hr) 240 MG CAP.ER.24H PO SCH (09:00)
[2020-01-30] MEDS ORDERED: *HR* Warfarin 3 MG TABLET PO ONE (18:00)
== END 2020-01-30 10:27 | disposition home or self-care (01) | DRG 308 ==
LOC: EMEROOARM 09:04 → 2ANU 09:04 → SUATTDRO 12:46 → 2ANU 14:00
PROVIDERS: ADMIT Internal Medicine; ATTEND Internal Medicine

== ENCOUNTER 2020-02-02 06:55 | Observation (INO) ==
[2020-02-02 08:18] LABS: Basophils # 0.1 K/mcL (0.0-0.2); Basophils % 0.6 %; Eosinophils # 0.1 K/mcL (0.0-0.6); Eosinophils % 1.5 %; Hematocrit 41.3 % (35.3-44.9); Immature Granulocytes % 0.9 % (0-4); Lymphocytes # 1.5 K/mcL (0.6-4.6); Lymphocytes % 18.7 %; Mean Corpuscular HGB Conc 31.5 g/dL (31.6-35.5); Mean Corpuscular Volume 88.8 fL (83.0-100.0); Mean Platelet Volume 10.9 fL (9.4-12.4); Monocytes # 0.7 K/mcL (0.0-1.3); Monocytes % 8.1 %; Neutrophils # 5.6 K/mcL (1.6-8.9); Platelet Count 208 K/mcL (140-400); Red Blood Count 4.65 M/mcL (3.82-4.97); Red Cell Distribution Width 14.1 % (11.5-14.5); Segmented Neutrophils % 70.2 %
[2020-02-02 08:24] LABS: INR 2.6; Prothrombin Time 29.2 Seconds (9.4-12.1)
[2020-02-02 08:39] LABS: BUN/Creatinine Ratio 31 (6-26); Blood Urea Nitrogen 27 mg/dL (8-23); Calcium 8.8 mg/dL (8.6-10.3); Carbon Dioxide 31 mEq/L (23-29); Chloride 101 mEq/L (98-107); Glucose 167 mg/dL (70-105); Osmolality,Calculated 297 (280-300); Potassium 3.5 mEq/L (3.5-5.1); Sodium 139 mEq/L (136-145); eGFR For African Americans > 60 (> 60); eGFR For Non-African Americans > 60 (> 60)
[2020-02-02 08:40] LABS: Troponin I < 0.03 ng/mL (< 0.04)
[2020-02-02] MEDS ORDERED: Isovue-370 500 ML BOTTLE IVP ONE (09:04)
[2020-02-02] MEDS ORDERED: Furosemide 40 MG/4 ML VIAL IVP ONE (10:45)
[2020-02-02] MEDS ORDERED: *HR* Promethazine 25 MG/ML VIAL IVP PRN (10:56)
[2020-02-02] MEDS ORDERED: Naloxone 0.4 MG/ML INJ IVP PRN (10:56)
[2020-02-02] MEDS ORDERED: DilTIAZem 50 MG in 0.9 % Sodium Chloride 40 ML IVC SCH (12:45)
[2020-02-02] MEDS ORDERED: DilTIAZem CD (24hr) 240 MG CAP.ER.24H PO SCH (12:45)
[2020-02-02] MEDS ORDERED: DilTIAZem 50 MG/50 ML IV.SOLN IVC SCH (13:45)
[2020-02-02] MEDS: DilTIAZem CD (24hr) 180 MG CAP.ER.24H PO SCH (13:59)
[2020-02-02] MEDS: Metoprolol XL (24 HR) Succ 50 MG TAB.ER.24H PO SCH ×2 (14:00→20:25)
[2020-02-02] MEDS ORDERED: *HR* Warfarin 3 MG TABLET PO ONE (18:00)
[2020-02-02] MEDS ORDERED: Warfarin perPT PO PRN (18:00)
[2020-02-02] MEDS: Furosemide 40 MG/4 ML VIAL IVP SCH (20:25)
[2020-02-03 03:31] LABS: Hematocrit 39.2 % (35.3-44.9); Hemoglobin 12.5 g/dL (11.5-15.4); Mean Corpuscular HGB Conc 31.9 g/dL (31.6-35.5); Mean Corpuscular Hemoglobin 28.7 pg (28.0-33.3); Mean Corpuscular Volume 90.1 fL (83.0-100.0); Mean Platelet Volume 10.6 fL (9.4-12.4); Platelet Count 214 K/mcL (140-400); Red Blood Count 4.35 M/mcL (3.82-4.97); White Blood Count 9.6 K/mcL (4.3-11.1)
[2020-02-03 03:32] LABS: INR 2.3; Prothrombin Time 26.1 Seconds (9.4-12.1)
[2020-02-03 03:46] LABS: BUN/Creatinine Ratio 25 (6-26); Blood Urea Nitrogen 24 mg/dL (8-23); Calcium 8.4 mg/dL (8.6-10.3); Carbon Dioxide 32 mEq/L (23-29); Chloride 101 mEq/L (98-107); Glucose 157 mg/dL (70-105); Magnesium 1.7 mg/dL (1.6-2.6); Osmolality,Calculated 299 (280-300); Potassium 3.2 mEq/L (3.5-5.1); Sodium 141 mEq/L (136-145); eGFR For African Americans > 60 (> 60); eGFR For Non-African Americans 55 (> 60)
[2020-02-03] MEDS: Acetaminophen 325 MG TABLET PO PRN (09:07)
[2020-02-03] MEDS: DilTIAZem CD (24hr) 180 MG CAP.ER.24H PO SCH (09:08)
[2020-02-03] MEDS: Furosemide 40 MG/4 ML VIAL IVP SCH ×2 (09:08→17:37)
[2020-02-03] MEDS: Metoprolol XL (24 HR) Succ 50 MG TAB.ER.24H PO SCH ×2 (09:08→19:37)
[2020-02-03] MEDS ORDERED: Melatonin 3 MG TABLET PO ONE (11:41)
[2020-02-03] MEDS ORDERED: *HR* Warfarin 3 MG TABLET PO ONE (18:00)
[2020-02-04] MEDS: Acetaminophen 325 MG TABLET PO PRN ×2 (00:23→19:53)
[2020-02-04 01:32] LABS: INR 2.3; Prothrombin Time 26.1 Seconds (9.4-12.1)
[2020-02-04 01:46] LABS: BUN/Creatinine Ratio 25 (6-26); Blood Urea Nitrogen 25 mg/dL (8-23); Calcium 8.7 mg/dL (8.6-10.3); Carbon Dioxide 31 mEq/L (23-29); Chloride 100 mEq/L (98-107); Glucose 171 mg/dL (70-105); Osmolality,Calculated 298 (280-300); Potassium 3.8 mEq/L (3.5-5.1); Sodium 140 mEq/L (136-145); eGFR For African Americans > 60 (> 60); eGFR For Non-African Americans 52 (> 60)
[2020-02-04] MEDS: Furosemide 40 MG/4 ML VIAL IVP SCH (05:44)
[2020-02-04] MEDS: DilTIAZem CD (24hr) 180 MG CAP.ER.24H PO SCH (10:09)
[2020-02-04] MEDS: Metoprolol XL (24 HR) Succ 50 MG TAB.ER.24H PO SCH ×2 (10:09→19:53)
[2020-02-04] MEDS: Bumetanide 1 MG TABLET PO SCH (17:37)
[2020-02-04] MEDS ORDERED: *HR* Warfarin 3 MG TABLET PO ONE (18:00)
[2020-02-04] MEDS ORDERED: Bumetanide 1 MG TABLET PO ONE (18:00)
[2020-02-05 01:39] LABS: Basophils # 0.1 K/mcL (0.0-0.2); Basophils % 0.6 %; Eosinophils # 0.2 K/mcL (0.0-0.6); Eosinophils % 1.7 %; Hematocrit 38.5 % (35.3-44.9); Hemoglobin 12.5 g/dL (11.5-15.4); Immature Granulocytes % 1.1 % (0-4); Lymphocytes # 1.6 K/mcL (0.6-4.6); Mean Corpuscular HGB Conc 32.5 g/dL (31.6-35.5); Mean Corpuscular Hemoglobin 28.9 pg (28.0-33.3); Mean Corpuscular Volume 89.1 fL (83.0-100.0); Mean Platelet Volume 10.8 fL (9.4-12.4); Monocytes % 9.8 %; Neutrophils # 6.9 K/mcL (1.6-8.9); Platelet Count 236 K/mcL (140-400); Red Blood Count 4.32 M/mcL (3.82-4.97); Red Cell Distribution Width 13.9 % (11.5-14.5); Segmented Neutrophils % 70.8 %; White Blood Count 9.7 K/mcL (4.3-11.1)
[2020-02-05 01:43] LABS: INR 2.4; Prothrombin Time 27.1 Seconds (9.4-12.1)
[2020-02-05 01:56] LABS: BUN/Creatinine Ratio 29 (6-26); Blood Urea Nitrogen 27 mg/dL (8-23); Calcium 8.6 mg/dL (8.6-10.3); Carbon Dioxide 32 mEq/L (23-29); Chloride 98 mEq/L (98-107); Glucose 209 mg/dL (70-105); Magnesium 1.7 mg/dL (1.6-2.6); Osmolality,Calculated 299 (280-300); Potassium 3.2 mEq/L (3.5-5.1); Sodium 139 mEq/L (136-145); eGFR For African Americans > 60 (> 60); eGFR For Non-African Americans 57 (> 60)
[2020-02-05] MEDS: Acetaminophen 325 MG TABLET PO PRN (06:05)
[2020-02-05] MEDS: DilTIAZem CD (24hr) 180 MG CAP.ER.24H PO SCH (07:15)
[2020-02-05] MEDS: Bumetanide 1 MG TABLET PO SCH (07:15)
[2020-02-05] MEDS: Metoprolol XL (24 HR) Succ 50 MG TAB.ER.24H PO SCH ×2 (07:15→21:32)
[2020-02-05] MEDS: Furosemide 40 MG/4 ML VIAL IVP SCH ×2 (16:56→21:32)
[2020-02-05] MEDS ORDERED: *HR* Warfarin 3 MG TABLET PO ONE (18:00)
[2020-02-06 02:28] LABS: Basophils # 0.1 K/mcL (0.0-0.2); Basophils % 0.5 %; Eosinophils # 0.1 K/mcL (0.0-0.6); Eosinophils % 1.3 %; Hematocrit 39.2 % (35.3-44.9); Hemoglobin 12.3 g/dL (11.5-15.4); Immature Granulocytes % 0.9 % (0-4); Lymphocytes # 1.6 K/mcL (0.6-4.6); Lymphocytes % 14.7 %; Mean Corpuscular HGB Conc 31.4 g/dL (31.6-35.5); Mean Corpuscular Hemoglobin 27.6 pg (28.0-33.3); Mean Corpuscular Volume 88.1 fL (83.0-100.0); Mean Platelet Volume 10.9 fL (9.4-12.4); Monocytes % 9.7 %; Neutrophils # 7.7 K/mcL (1.6-8.9); Platelet Count 268 K/mcL (140-400); Red Blood Count 4.45 M/mcL (3.82-4.97); Red Cell Distribution Width 13.8 % (11.5-14.5); Segmented Neutrophils % 72.9 %; White Blood Count 10.6 K/mcL (4.3-11.1)
[2020-02-06 02:32] LABS: INR 2.3; Prothrombin Time 26.4 Seconds (9.4-12.1)
[2020-02-06 02:49] LABS: BUN/Creatinine Ratio 29 (6-26); Blood Urea Nitrogen 28 mg/dL (8-23); Carbon Dioxide 30 mEq/L (23-29); Chloride 99 mEq/L (98-107); Glucose 204 mg/dL (70-105); Osmolality,Calculated 299 (280-300); Potassium 3.5 mEq/L (3.5-5.1); Sodium 139 mEq/L (136-145); eGFR For African Americans > 60 (> 60); eGFR For Non-African Americans 54 (> 60)
[2020-02-06] MEDS: Furosemide 40 MG/4 ML VIAL IVP SCH (06:54)
[2020-02-06] MEDS: DilTIAZem CD (24hr) 180 MG CAP.ER.24H PO SCH (06:55)
[2020-02-06] MEDS: Metoprolol XL (24 HR) Succ 50 MG TAB.ER.24H PO SCH (06:55)
[2020-02-06 10:44] VITALS: BP 113/65
[2020-02-06] MEDS ORDERED: *HR* Warfarin 3 MG TABLET PO SCH (18:00)
== END 2020-02-06 16:22 | disposition home health service (06) ==
LOC: 2ANU 06:55 → EMEROOARM 06:55 → SUATTDRO 11:14 → 2ANU 12:06
PROVIDERS: ADMIT Internal Medicine; ATTEND Student in an Organized Health Care Education/Training Program

== ENCOUNTER 2020-02-19 14:51 | Inpatient (IN) ==
[2020-02-19] MEDS ORDERED: Furosemide 40 MG/4 ML VIAL IVP ONE (15:18)
[2020-02-19 16:26] LABS: Prothrombin Time 33.2 Seconds (9.4-12.1)
[2020-02-19 16:38] LABS: BUN/Creatinine Ratio 22 (6-26); Blood Urea Nitrogen 20 mg/dL (8-23); Calcium 8.8 mg/dL (8.6-10.3); Carbon Dioxide 35 mEq/L (23-29); Chloride 96 mEq/L (98-107); Glucose 179 mg/dL (70-105); Osmolality,Calculated 293 (280-300); Potassium 3.7 mEq/L (3.5-5.1); Sodium 138 mEq/L (136-145); eGFR For African Americans > 60 (> 60); eGFR For Non-African Americans 58 (> 60)
[2020-02-19 16:41] LABS: Basophils # 0.1 K/mcL (0.0-0.2); Basophils % 0.5 %; Eosinophils # 0.1 K/mcL (0.0-0.6); Hemoglobin 12.7 g/dL (11.5-15.4); Immature Granulocytes % 0.8 % (0-4); Lymphocytes # 1.4 K/mcL (0.6-4.6); Lymphocytes % 11.1 %; Mean Corpuscular Hemoglobin 27.8 pg (28.0-33.3); Mean Corpuscular Volume 89.7 fL (83.0-100.0); Mean Platelet Volume 10.7 fL (9.4-12.4); Monocytes % 8.4 %; Neutrophils # 9.7 K/mcL (1.6-8.9); Platelet Count 267 K/mcL (140-400); Red Blood Count 4.57 M/mcL (3.82-4.97); Red Cell Distribution Width 13.5 % (11.5-14.5); Segmented Neutrophils % 78.2 %; White Blood Count 12.4 K/mcL (4.3-11.1)
[2020-02-19] MEDS ORDERED: Naloxone 0.4 MG/ML INJ IVP PRN (16:48)
[2020-02-19] MEDS ORDERED: Warfarin perPT PO PRN (18:00)
[2020-02-19 18:07] LABS: Troponin I < 0.03 ng/mL (< 0.04)
[2020-02-19] MEDS ORDERED: *HR* Warfarin 2 MG TABLET PO ONE (19:46)
[2020-02-19] MEDS: Metoprolol XL (24 HR) Succ 50 MG TAB.ER.24H PO SCH (20:50)
[2020-02-19] MEDS: Furosemide 40 MG/4 ML VIAL IVP SCH (20:51)
[2020-02-20 05:30] LABS: Basophils % 0.4 %; Eosinophils # 0.1 K/mcL (0.0-0.6); Eosinophils % 1.1 %; Hematocrit 40.5 % (35.3-44.9); Hemoglobin 12.6 g/dL (11.5-15.4); Immature Granulocytes % 0.9 % (0-4); Lymphocytes # 1.5 K/mcL (0.6-4.6); Lymphocytes % 14.8 %; Mean Corpuscular HGB Conc 31.1 g/dL (31.6-35.5); Mean Corpuscular Hemoglobin 27.7 pg (28.0-33.3); Mean Platelet Volume 10.4 fL (9.4-12.4); Monocytes # 0.9 K/mcL (0.0-1.3); Monocytes % 8.9 %; Neutrophils # 7.4 K/mcL (1.6-8.9); Platelet Count 249 K/mcL (140-400); Red Blood Count 4.55 M/mcL (3.82-4.97); Red Cell Distribution Width 13.6 % (11.5-14.5); Segmented Neutrophils % 73.9 %
[2020-02-20 05:43] LABS: BUN/Creatinine Ratio 21 (6-26); Blood Urea Nitrogen 20 mg/dL (8-23); Calcium 8.4 mg/dL (8.6-10.3); Carbon Dioxide 34 mEq/L (23-29); Chloride 95 mEq/L (98-107); Glucose 199 mg/dL (70-105); Osmolality,Calculated 294 (280-300); Potassium 3.6 mEq/L (3.5-5.1); Sodium 138 mEq/L (136-145); eGFR For African Americans > 60 (> 60); eGFR For Non-African Americans 55 (> 60)
[2020-02-20 05:48] LABS: INR 2.6
[2020-02-20] MEDS: Furosemide 40 MG/4 ML VIAL IVP SCH ×2 (08:30→20:10)
[2020-02-20] MEDS: Metoprolol XL (24 HR) Succ 50 MG TAB.ER.24H PO SCH ×2 (08:30→20:10)
[2020-02-20] MEDS: DilTIAZem CD (24hr) 180 MG CAP.ER.24H PO SCH (08:30)
[2020-02-20] MEDS ORDERED: Ipratropium/Albuterol Neb 3 ML IH PRN (13:58)
[2020-02-20] MEDS ORDERED: *HR* Warfarin 3 MG TABLET PO ONE (18:00)
[2020-02-20] MEDS: Melatonin 3 MG TABLET PO SCH (20:11)
[2020-02-21 05:45] LABS: Hematocrit 41.4 % (35.3-44.9); Hemoglobin 12.4 g/dL (11.5-15.4); Mean Corpuscular Hemoglobin 27.5 pg (28.0-33.3); Mean Corpuscular Volume 91.8 fL (83.0-100.0); Mean Platelet Volume 10.7 fL (9.4-12.4); Platelet Count 256 K/mcL (140-400); Red Blood Count 4.51 M/mcL (3.82-4.97); Red Cell Distribution Width 13.7 % (11.5-14.5); White Blood Count 8.6 K/mcL (4.3-11.1)
[2020-02-21 05:55] LABS: INR 2.1; Prothrombin Time 24.3 Seconds (9.4-12.1)
[2020-02-21 06:05] LABS: BUN/Creatinine Ratio 22 (6-26); Blood Urea Nitrogen 23 mg/dL (8-23); Calcium 8.9 mg/dL (8.6-10.3); Carbon Dioxide 35 mEq/L (23-29); Chloride 95 mEq/L (98-107); Glucose 200 mg/dL (70-105); Magnesium 1.9 mg/dL (1.6-2.6); Osmolality,Calculated 295 (280-300); Phosphorous 4.5 mg/dL (2.7-4.5); Potassium 3.5 mEq/L (3.5-5.1); Sodium 138 mEq/L (136-145); eGFR For African Americans > 60 (> 60); eGFR For Non-African Americans 50 (> 60)
[2020-02-21] MEDS: DilTIAZem CD (24hr) 180 MG CAP.ER.24H PO SCH (08:51)
[2020-02-21] MEDS: Furosemide 40 MG/4 ML VIAL IVP SCH ×2 (08:51→19:45)
[2020-02-21] MEDS: Metoprolol XL (24 HR) Succ 50 MG TAB.ER.24H PO SCH ×2 (08:51→19:44)
[2020-02-21 11:05] LABS: Albumin 3.8 g/dL (3.5-5.7)
[2020-02-21] MEDS ORDERED: *HR* Warfarin 4 MG TABLET PO ONE (18:00)
[2020-02-21] MEDS: Melatonin 3 MG TABLET PO SCH ×2 (19:45→21:49)
[2020-02-22 03:34] LABS: Hemoglobin 12.6 g/dL (11.5-15.4); Mean Corpuscular HGB Conc 30.7 g/dL (31.6-35.5); Mean Corpuscular Hemoglobin 28.2 pg (28.0-33.3); Mean Corpuscular Volume 91.7 fL (83.0-100.0); Mean Platelet Volume 10.3 fL (9.4-12.4); Platelet Count 241 K/mcL (140-400); Red Blood Count 4.47 M/mcL (3.82-4.97); Red Cell Distribution Width 13.8 % (11.5-14.5); White Blood Count 10.3 K/mcL (4.3-11.1)
[2020-02-22 03:38] LABS: INR 2.4; Prothrombin Time 27.6 Seconds (9.4-12.1)
[2020-02-22 03:54] LABS: Calcium 8.9 mg/dL (8.6-10.3); Magnesium 1.9 mg/dL (1.6-2.6); Phosphorous 4.6 mg/dL (2.7-4.5); Potassium 4.1 mEq/L (3.5-5.1)
[2020-02-22] MEDS: DilTIAZem CD (24hr) 180 MG CAP.ER.24H PO SCH (07:32)
[2020-02-22] MEDS: Metoprolol XL (24 HR) Succ 50 MG TAB.ER.24H PO SCH ×2 (07:32→20:28)
[2020-02-22] MEDS: Furosemide 40 MG/4 ML VIAL IVP SCH ×2 (07:32→20:28)
[2020-02-22] MEDS ORDERED: *HR* Warfarin 3 MG TABLET PO ONE (18:00)
[2020-02-22] MEDS: Melatonin 3 MG TABLET PO SCH (20:28)
[2020-02-23 04:04] LABS: Hematocrit 40.4 % (35.3-44.9); Hemoglobin 12.5 g/dL (11.5-15.4); Mean Corpuscular HGB Conc 30.9 g/dL (31.6-35.5); Mean Corpuscular Volume 90.4 fL (83.0-100.0); Mean Platelet Volume 10.1 fL (9.4-12.4); Platelet Count 221 K/mcL (140-400); Red Blood Count 4.47 M/mcL (3.82-4.97); Red Cell Distribution Width 13.8 % (11.5-14.5); White Blood Count 8.7 K/mcL (4.3-11.1)
[2020-02-23 04:11] LABS: Prothrombin Time 33.7 Seconds (9.4-12.1)
[2020-02-23 04:23] LABS: BUN/Creatinine Ratio 30 (6-26); Blood Urea Nitrogen 28 mg/dL (8-23); Calcium 8.8 mg/dL (8.6-10.3); Carbon Dioxide 38 mEq/L (23-29); Chloride 96 mEq/L (98-107); Glucose 210 mg/dL (70-105); Magnesium 1.9 mg/dL (1.6-2.6); Osmolality,Calculated 300 (280-300); Phosphorous 3.8 mg/dL (2.7-4.5); Potassium 4.1 mEq/L (3.5-5.1); Sodium 139 mEq/L (136-145); eGFR For African Americans > 60 (> 60); eGFR For Non-African Americans 57 (> 60)
[2020-02-23] MEDS: DilTIAZem CD (24hr) 180 MG CAP.ER.24H PO SCH (09:22)
[2020-02-23] MEDS: Metoprolol XL (24 HR) Succ 50 MG TAB.ER.24H PO SCH ×2 (09:22→20:58)
[2020-02-23] MEDS: Furosemide 40 MG/4 ML VIAL IVP SCH ×2 (09:22→20:59)
[2020-02-23] MEDS ORDERED: Furosemide 40 MG/4 ML VIAL IVP ONE (14:11)
[2020-02-23] MEDS ORDERED: *HR* Warfarin 3 MG TABLET PO ONE (18:00)
[2020-02-23] MEDS ORDERED: metOLazone 5 MG TABLET PO ONE (20:00)
[2020-02-23] MEDS: Melatonin 3 MG TABLET PO SCH (20:58)
[2020-02-23] MEDS: Acetaminophen 325 MG TABLET PO PRN (20:58)
[2020-02-24 01:36] LABS: Hematocrit 40.9 % (35.3-44.9); Mean Corpuscular HGB Conc 31.8 g/dL (31.6-35.5); Mean Corpuscular Hemoglobin 28.5 pg (28.0-33.3); Mean Corpuscular Volume 89.7 fL (83.0-100.0); Mean Platelet Volume 10.5 fL (9.4-12.4); Platelet Count 267 K/mcL (140-400); Red Blood Count 4.56 M/mcL (3.82-4.97); Red Cell Distribution Width 13.8 % (11.5-14.5); White Blood Count 11.4 K/mcL (4.3-11.1)
[2020-02-24 01:56] LABS: Calcium 8.7 mg/dL (8.6-10.3); Magnesium 1.8 mg/dL (1.6-2.6); Phosphorous 3.7 mg/dL (2.7-4.5); Potassium 3.3 mEq/L (3.5-5.1)
[2020-02-24] MEDS: Furosemide 40 MG/4 ML VIAL IVP SCH ×2 (08:02→21:03)
[2020-02-24] MEDS: Metoprolol XL (24 HR) Succ 50 MG TAB.ER.24H PO SCH ×2 (08:02→21:03)
[2020-02-24] MEDS: DilTIAZem CD (24hr) 180 MG CAP.ER.24H PO SCH (08:02)
[2020-02-24] MEDS: *HR* Digoxin 0.25 MG TABLET PO SCH (10:27)
[2020-02-24] MEDS ORDERED: Furosemide 40 MG/4 ML VIAL IVP ONE (14:05)
[2020-02-24] MEDS ORDERED: *HR* Warfarin 3 MG TABLET PO ONE (18:00)
[2020-02-24] MEDS: Melatonin 3 MG TABLET PO SCH (21:03)
[2020-02-24] MEDS: Nystatin POWDER 30 GM BOTTLE TP SCH (21:04)
[2020-02-25] MEDS: Acetaminophen 325 MG TABLET PO PRN (00:16)
[2020-02-25 01:33] LABS: Basophils % 0.3 %; Eosinophils # 0.1 K/mcL (0.0-0.6); Eosinophils % 0.9 %; Hematocrit 40.1 % (35.3-44.9); Hemoglobin 12.6 g/dL (11.5-15.4); Immature Granulocytes % 0.6 % (0-4); Lymphocytes # 1.1 K/mcL (0.6-4.6); Lymphocytes % 9.4 %; Mean Corpuscular HGB Conc 31.4 g/dL (31.6-35.5); Mean Corpuscular Hemoglobin 27.5 pg (28.0-33.3); Mean Corpuscular Volume 87.4 fL (83.0-100.0); Mean Platelet Volume 10.3 fL (9.4-12.4); Monocytes # 1.2 K/mcL (0.0-1.3); Monocytes % 10.5 %; Neutrophils # 9.2 K/mcL (1.6-8.9); Platelet Count 236 K/mcL (140-400); Red Blood Count 4.59 M/mcL (3.82-4.97); Red Cell Distribution Width 13.6 % (11.5-14.5); Segmented Neutrophils % 78.3 %; White Blood Count 11.7 K/mcL (4.3-11.1)
[2020-02-25 01:35] LABS: INR 3.4; Prothrombin Time 37.5 Seconds (9.4-12.1)
[2020-02-25 01:46] LABS: BUN/Creatinine Ratio 26 (6-26); Blood Urea Nitrogen 27 mg/dL (8-23); Calcium 9.3 mg/dL (8.6-10.3); Carbon Dioxide 37 mEq/L (23-29); Chloride 91 mEq/L (98-107); Glucose 184 mg/dL (70-105); Osmolality,Calculated 296 (280-300); Potassium 2.8 mEq/L (3.5-5.1); Sodium 138 mEq/L (136-145); eGFR For African Americans > 60 (> 60); eGFR For Non-African Americans 51 (> 60)
[2020-02-25] MEDS: *HR* Digoxin 0.25 MG TABLET PO SCH (08:04)
[2020-02-25] MEDS: Furosemide 40 MG/4 ML VIAL IVP SCH ×2 (08:04→19:59)
[2020-02-25] MEDS: DilTIAZem CD (24hr) 180 MG CAP.ER.24H PO SCH (08:04)
[2020-02-25] MEDS: Metoprolol XL (24 HR) Succ 50 MG TAB.ER.24H PO SCH ×2 (08:04→20:08)
[2020-02-25] MEDS: Nystatin POWDER 30 GM BOTTLE TP SCH ×2 (08:05→20:07)
[2020-02-25] MEDS: Spironolactone 25 MG TABLET PO SCH (11:26)
[2020-02-25] MEDS ORDERED: metOLazone 5 MG TABLET PO PRN (12:27)
[2020-02-25] MEDS ORDERED: *HR* Digoxin 0.5 MG/2 ML AMPUL IVP ONE ×2 (14:00→16:01)
[2020-02-25 14:58] LABS: BUN/Creatinine Ratio 26 (6-26); Blood Urea Nitrogen 27 mg/dL (8-23); Calcium 9.1 mg/dL (8.6-10.3); Carbon Dioxide 37 mEq/L (23-29); Chloride 91 mEq/L (98-107); Glucose 194 mg/dL (70-105); Osmolality,Calculated 298 (280-300); Potassium 3.3 mEq/L (3.5-5.1); Sodium 139 mEq/L (136-145); eGFR For African Americans > 60 (> 60); eGFR For Non-African Americans 50 (> 60)
[2020-02-25] MEDS ORDERED: Magnesium Oxide 400 MG TABLET PO STA (15:11)
[2020-02-25] MEDS: Melatonin 3 MG TABLET PO SCH (20:07)
[2020-02-26 03:22] VITALS: BP 106/71
[2020-02-26] MEDS: Acetaminophen 325 MG TABLET PO PRN (04:02)
[2020-02-26 05:10] LABS: Prothrombin Time 33.6 Seconds (9.4-12.1)
[2020-02-26 05:25] LABS: Magnesium 1.8 mg/dL (1.6-2.6); Potassium 3.2 mEq/L (3.5-5.1)
[2020-02-26] MEDS: DilTIAZem CD (24hr) 180 MG CAP.ER.24H PO SCH (07:21)
[2020-02-26] MEDS: Metoprolol XL (24 HR) Succ 50 MG TAB.ER.24H PO SCH (07:21)
[2020-02-26] MEDS: Spironolactone 25 MG TABLET PO SCH (07:21)
[2020-02-26] MEDS: Nystatin POWDER 30 GM BOTTLE TP SCH (07:21)
[2020-02-26] MEDS: Furosemide 40 MG/4 ML VIAL IVP SCH (07:21)
[2020-02-26] MEDS ORDERED: Magnesium Oxide 400 MG TABLET PO SCH (09:00)
[2020-02-26] MEDS ORDERED: *HR* Digoxin 0.125 MG TABLET PO SCH (09:00)
[2020-02-27] MEDS ORDERED: *HR* Digoxin 0.125 MG TABLET PO SCH ×2 (09:00)
[2020-02-27] MEDS ORDERED: *HR* Digoxin 0.25 MG TABLET PO SCH (09:00)
== END 2020-02-26 10:21 | disposition home or self-care (01) | DRG 291 ==
LOC: 2ANU 14:51 → EMEROOARM 14:51 → SUATTDRO 17:02 → 2ANU 17:52 → SUATTDRO 02-22 15:54 → 2ANU 02-22 17:02
PROVIDERS: ADMIT Internal Medicine; ATTEND Internal Medicine

== ENCOUNTER 2020-03-02 08:40 | Inpatient (IN) ==
[2020-03-02 09:25] LABS: Basophils % 0.2 %; Eosinophils % 0.1 %; Hematocrit 43.5 % (35.3-44.9); Hemoglobin 13.5 g/dL (11.5-15.4); Lymphocytes # 0.5 K/mcL (0.6-4.6); Lymphocytes % 2.8 %; Mean Corpuscular Hemoglobin 27.3 pg (28.0-33.3); Mean Corpuscular Volume 87.9 fL (83.0-100.0); Mean Platelet Volume 9.9 fL (9.4-12.4); Monocytes # 0.8 K/mcL (0.0-1.3); Monocytes % 4.6 %; Platelet Count 217 K/mcL (140-400); Red Blood Count 4.95 M/mcL (3.82-4.97); Red Cell Distribution Width 13.9 % (11.5-14.5); Segmented Neutrophils % 91.3 %
[2020-03-02 09:38] LABS: Neutrophils # 16.4 K/mcL (1.6-8.9)
[2020-03-02 09:51] LABS: INR 3.5; Prothrombin Time 38.6 Seconds (9.4-12.1)
[2020-03-02 09:54] LABS: Activated Partial Thrombo Time 34.5 Seconds (26.0-36.0)
[2020-03-02 10:22] LABS: Albumin 4.2 g/dL (3.5-5.7); Albumin/Globulin Ratio 1.6 (1.1-2.2); Bilirubin,Total 1.8 mg/dL (0.3-1.0); Globulin 2.6 g/dL (2.4-3.5); Potassium 3.4 mEq/L (3.5-5.1); Total Protein 6.8 g/dL (6.4-8.9); Troponin I 0.03 ng/mL (< 0.04)
[2020-03-02] MEDS ORDERED: 0.9 % Sodium Chloride 1,000 ML IV ONE (10:35)
[2020-03-02] MEDS ORDERED: Piperacillin/Tazobactam 3.375 GM in 0.9 % Sodium Chloride Mini Bag 100 ML IVPB ONE (10:38)
[2020-03-02] MEDS ORDERED: Vancomycin 1,750 MG/517.5 ML IV.SOLN IVPB ONE (10:44)
[2020-03-02] MEDS ORDERED: Vancomycin 1,750 MG in 0.9 % Sodium Chloride 250 ML IVPB SCH ×2 (11:00→13:00)
[2020-03-02 11:37] LABS: Bilirubin,Urine Negative (Negative); Blood,Urine Negative (Negative); Clarity,Urine Clear (Clear); Color,Urine Yellow (Yellow); Glucose,Urine (UA) Normal (Normal); Ketones,Urine 15 mg/dL (Negative); Leukocyte Esterase,Urine Negative (Negative); Nitrite,Urine Negative (Negative); PH,Urine 8.5 pH Units (5.0-8.0); Protein,Urine Trace mg/dL (Neg-Trace); Specific Gravity,Urine 1.015 (1.010-1.025)
[2020-03-02] MEDS ORDERED: Acetaminophen 325 MG TABLET PO PRN (12:34)
[2020-03-02] MEDS ORDERED: *HR* OxyCODONE Immed Rel 5 MG TABLET PO PRN (12:34)
[2020-03-02] MEDS ORDERED: Naloxone 0.4 MG/ML INJ IVP PRN (12:34)
[2020-03-02 13:09] LABS: Magnesium 1.6 mg/dL (1.6-2.6)
[2020-03-02] MEDS ORDERED: *HR* Metoprolol 5 MG/5 ML VIAL IVP ONE ×2 (14:36→20:58)
[2020-03-02] MEDS ORDERED: 0.9 % Sodium Chloride 500 ML IVC ONE ×4 (14:37→19:29)
[2020-03-02] MEDS ORDERED: 0.9 % Sodium Chloride 1,000 ML IVC ONE (14:59)
[2020-03-02] MEDS ORDERED: Isovue-370 500 ML BOTTLE IVP ONE (15:12)
[2020-03-02] MEDS ORDERED: *HR* Heparin 5,000 UNIT/ML VIAL IVP ONE ×2 (15:13→20:08)
[2020-03-02] MEDS: *HR* Digoxin 0.125 MG TABLET PO SCH (15:13)
[2020-03-02] MEDS ORDERED: *HR* Heparin 5,000 UNIT/ML VIAL IVP PRN ×4 (15:13→20:08)
[2020-03-02] MEDS ORDERED: Heparin 25,000UNIT/250ML 1/2NS 25,000 UNIT/250 ML IV.SOLN IVC SCH (15:15)
[2020-03-02] MEDS ORDERED: Ringers Solution, Lactated 500 ML IVC ONE (16:53)
[2020-03-02] MEDS ORDERED: Warfarin perPT PO PRN (18:00)
[2020-03-02] MEDS: Piperacillin/Tazobactam 3.375 GM in 0.9 % Sodium Chloride Mini Bag 100 ML IVPB SCH ×2 (18:32→23:40)
[2020-03-02] MEDS: Phenylephrine 10 MG in 0.9 % Sodium Chloride 250 ML IVC SCH (18:40)
[2020-03-02] MEDS: Norepinephrine 4 MG/254 ML IV.SOLN IVC SCH (18:40)
[2020-03-02] MEDS: *HR* HYDROcodone/Acet 5/325 mg TABLET PO PRN (19:03)
[2020-03-02] MEDS: Heparin 25,000UNIT/250ML 1/2NS 25,000 UNIT/250 ML IV.SOLN IVC SCH (21:07)
[2020-03-02 21:20] LABS: INR 2.7; Prothrombin Time 30.8 Seconds (9.4-12.1)
[2020-03-02 21:52] LABS: Enterococcus by PCR Not Detected (Not Detect); Staphylococcus aureus by PCR Not Detected (Not Detect); Staphylococcus by PCR Not Detected (Not Detect); Streptococcus agalactiae(B)PCR Not Detected (Not Detect); Streptococcus by PCR Not Detected (Not Detect); Streptococcus pneumoniae PCR Not Detected (Not Detect); blaKPC Carbapenem-Resist Gene Not Detected (Not Detect); mecA Methicillin-Resist Gene Not Detected (Not Detect); vanA/B Vancomycin-Resist Genes Not Detected (Not Detect)
[2020-03-02 21:53] LABS: Acinetobacter baumannii by PCR Not Detected (Not Detect); Candida albicans by PCR Not Detected (Not Detect); Candida glabrata by PCR Not Detected (Not Detect); Candida krusei by PCR Not Detected (Not Detect); Candida parapsilosis by PCR Not Detected (Not Detect); Candida tropicalis by PCR Not Detected (Not Detect); Enterobacter cloacae Cmplx PCR Not Detected (Not Detect); Enterobacteriaceae by PCR Not Detected (Not Detect); Escherichia coli by PCR Not Detected (Not Detect); Klebsiella oxytoca by PCR Not Detected (Not Detect); Klebsiella pneumoniae by PCR Not Detected (Not Detect); Proteus by PCR Not Detected (Not Detect); Pseudomonas aeruginosa by PCR Not Detected (Not Detect); Serratia marcescens by PCR Not Detected (Not Detect); Streptococcus pyogenes (A) PCR DETECTED (Not Detect)
[2020-03-02] MEDS ORDERED: Vancomycin 2,000 MG/520 ML IV.SOLN IVPB SCH (23:00)
[2020-03-03] MEDS ORDERED: Amiodarone Premix 360 MG/200 ML BAG IVC ONE (00:08)
[2020-03-03] MEDS ORDERED: Amiodarone Premix 150 MG/100 ML BAG IVPB ONE (00:08)
[2020-03-03] MEDS: Phenylephrine 10 MG in 0.9 % Sodium Chloride 250 ML IVC SCH ×2 (00:45→05:41)
[2020-03-03 04:57] LABS: Hematocrit 41.5 % (35.3-44.9); Hemoglobin 12.7 g/dL (11.5-15.4); Mean Corpuscular HGB Conc 30.6 g/dL (31.6-35.5); Mean Corpuscular Volume 91.6 fL (83.0-100.0); Mean Platelet Volume 10.5 fL (9.4-12.4); Platelet Count 274 K/mcL (140-400); Red Blood Count 4.53 M/mcL (3.82-4.97); Red Cell Distribution Width 14.6 % (11.5-14.5)
[2020-03-03 04:58] LABS: INR 3.2; Prothrombin Time 36.3 Seconds (9.4-12.1)
[2020-03-03 05:04] LABS: Heparin anti-factor XA UFH 1.17 IU/mL (0.30-0.70); White Blood Count 34.9 K/mcL (4.3-11.1)
[2020-03-03 05:07] LABS: Calcium 7.8 mg/dL (8.6-10.3); Magnesium 1.6 mg/dL (1.6-2.6); Potassium 3.8 mEq/L (3.5-5.1)
[2020-03-03] MEDS: Norepinephrine 4 MG/254 ML IV.SOLN IVC SCH (05:58)
[2020-03-03 06:08] LABS: Lymphocytes # 3.5 K/mcL (0.6-4.6); Monocytes # 3.5 K/mcL (0.0-1.3); Neutrophils # 24.4 K/mcL (1.6-8.9); Platelet Estimate Normal (Normal)
[2020-03-03] MEDS: Piperacillin/Tazobactam 3.375 GM in 0.9 % Sodium Chloride Mini Bag 100 ML IVPB SCH (08:20)
[2020-03-03] MEDS: *HR* Digoxin 0.125 MG TABLET PO SCH (08:20)
[2020-03-03 08:36] LABS: Creatinine,Urine 152 mg/dL; Sodium, Urine < 10.0 mEq/L
[2020-03-03] MEDS: Lactobacillus 1 EACH CAP.SPRINK PO SCH ×2 (09:33→21:02)
[2020-03-03] MEDS: Clindamycin 600 MG/50 ML 600 MG/50 ML IV.SOLN IVPB SCH ×3 (09:33→23:21)
[2020-03-03] MEDS: Magnesium Oxide 400 MG TABLET PO SCH (09:34)
[2020-03-03] MEDS ORDERED: Isovue-370 500 ML BOTTLE IVP ONE (10:06)
[2020-03-03] MEDS ORDERED: D5% in Water 1,000 ML IVC PRN (10:27)
[2020-03-03] MEDS ORDERED: *HR* Dextrose 50 % in Water (Vial) 50 ML VIAL IVP PRN (10:27)
[2020-03-03] MEDS ORDERED: *HR* Heparin 5,000 UNIT/ML VIAL IVP PRN (10:27)
[2020-03-03] MEDS ORDERED: Dextrose Gel 15 GM/37.5 ML TUBE PO PRN ×2 (10:27)
[2020-03-03] MEDS: Amiodarone Premix 360 MG/200 ML BAG IVC SCH ×2 (11:19→21:08)
[2020-03-03] MEDS: *HR* HYDROcodone/Acet 5/325 mg TABLET PO PRN (12:21)
[2020-03-03] MEDS: Insulin LISPRO 300 UNITS/3 ML VIAL SQ SCH ×3 (12:53→23:31)
[2020-03-03 13:29] LABS: Hematocrit 38.3 % (35.3-44.9); Hemoglobin 12.1 g/dL (11.5-15.4)
[2020-03-03 13:48] LABS: Albumin 3.4 g/dL (3.5-5.7); Albumin/Globulin Ratio 1.4 (1.1-2.2); Bilirubin,Total 1.3 mg/dL (0.3-1.0); Calcium 7.3 mg/dL (8.6-10.3); Globulin 2.5 g/dL (2.4-3.5); Potassium 4.2 mEq/L (3.5-5.1); Total Protein 5.9 g/dL (6.4-8.9)
[2020-03-03] MEDS: Cefepime HCl 1,000 MG in Water for inj. (sterile) 10 ML IVP SCH ×2 (14:06→21:06)
[2020-03-03] MEDS ORDERED: Ringers Solution, Lactated 1,000 ML IVC ONE (16:45)
[2020-03-03 18:04] LABS: Hematocrit 37.4 % (35.3-44.9); Hemoglobin 11.8 g/dL (11.5-15.4)
[2020-03-03] MEDS: Heparin 25,000UNIT/250ML 1/2NS 25,000 UNIT/250 ML IV.SOLN IVC SCH (18:07)
[2020-03-03] MEDS: Nystatin POWDER 30 GM BOTTLE TP SCH (21:06)
[2020-03-03] MEDS: Metoprolol XL (24 HR) Succ 50 MG TAB.ER.24H PO SCH (23:08)
[2020-03-03 23:13] LABS: Hematocrit 36.2 % (35.3-44.9); Hemoglobin 11.6 g/dL (11.5-15.4)
[2020-03-03] MEDS: Ondansetron ODT 4 MG TAB.RAPDIS SL PRN (23:47)
[2020-03-04 03:24] LABS: Albumin 3.3 g/dL (3.5-5.7); Albumin/Globulin Ratio 1.2 (1.1-2.2); Bilirubin,Total 1.3 mg/dL (0.3-1.0); Calcium 7.5 mg/dL (8.6-10.3); Globulin 2.7 g/dL (2.4-3.5); Magnesium 1.7 mg/dL (1.6-2.6); Potassium 4.3 mEq/L (3.5-5.1)
[2020-03-04 04:46] LABS: Hematocrit 37.1 % (35.3-44.9); Hemoglobin 11.4 g/dL (11.5-15.4); Mean Corpuscular HGB Conc 30.7 g/dL (31.6-35.5); Mean Corpuscular Hemoglobin 27.8 pg (28.0-33.3); Mean Corpuscular Volume 90.5 fL (83.0-100.0); Mean Platelet Volume 10.5 fL (9.4-12.4); Platelet Count 198 K/mcL (140-400); Red Cell Distribution Width 14.7 % (11.5-14.5); White Blood Count 22.2 K/mcL (4.3-11.1)
[2020-03-04] MEDS: Cefepime HCl 1,000 MG in Water for inj. (sterile) 10 ML IVP SCH ×3 (05:34→21:08)
[2020-03-04] MEDS: Insulin LISPRO 300 UNITS/3 ML VIAL SQ SCH ×3 (05:46→17:12)
[2020-03-04 06:48] LABS: Lymphocytes # 1.3 K/mcL (0.6-4.6); Monocytes # 0.4 K/mcL (0.0-1.3); Neutrophils # 18.7 K/mcL (1.6-8.9)
[2020-03-04] MEDS: Lactobacillus 1 EACH CAP.SPRINK PO SCH ×2 (07:51→21:08)
[2020-03-04] MEDS: Clindamycin 600 MG/50 ML 600 MG/50 ML IV.SOLN IVPB SCH (07:51)
[2020-03-04] MEDS: Metoprolol XL (24 HR) Succ 50 MG TAB.ER.24H PO SCH (07:51)
[2020-03-04] MEDS: *HR* Digoxin 0.125 MG TABLET PO SCH (07:51)
[2020-03-04] MEDS: Magnesium Oxide 400 MG TABLET PO SCH (07:51)
[2020-03-04] MEDS: Heparin 25,000UNIT/250ML 1/2NS 25,000 UNIT/250 ML IV.SOLN IVC SCH ×3 (07:52→23:15)
[2020-03-04] MEDS: Nystatin POWDER 30 GM BOTTLE TP SCH ×2 (07:52→21:09)
[2020-03-04] MEDS: Amiodarone Premix 360 MG/200 ML BAG IVC SCH (08:12)
[2020-03-04] MEDS ORDERED: Bisacodyl 10 MG RECTAL SUPPOSITORY RC STA (10:21)
[2020-03-04] MEDS: Ondansetron ODT 4 MG TAB.RAPDIS SL PRN (12:03)
[2020-03-04] MEDS: *HR* HYDROcodone/Acet 5/325 mg TABLET PO PRN (12:38)
[2020-03-04 12:51] LABS: Calcium 7.6 mg/dL (8.6-10.3); Potassium 4.5 mEq/L (3.5-5.1)
[2020-03-04] MEDS ORDERED: Pantoprazole 40 MG VIAL IVP ONE (13:13)
[2020-03-04 14:04] LABS: Uric Acid 11.5 mg/dL (2.3-7.6)
[2020-03-04] MEDS: 0.9 % Sodium Chloride 1,000 ML IVC SCH (14:44)
[2020-03-04 15:25] LABS: Hepatitis B Core IgM Nonreactive (Nonreactive)
[2020-03-04 15:26] LABS: Hepatitis C Virus Antibody Nonreactive (Nonreactive)
[2020-03-04] MEDS: Clindamycin 900 MG/50 ML 900 MG/50 ML IV.SOLN IVPB SCH ×2 (15:42→23:10)
[2020-03-04] MEDS: Norepinephrine 4 MG/254 ML IV.SOLN IVC SCH (15:42)
[2020-03-04 16:17] LABS: Hepatitis B Surface Antigen Nonreactive (Nonreactive)
[2020-03-04 16:33] LABS: Hepatitis A Antibody IgM Nonreactive (Nonreactive)
[2020-03-04] MEDS: Pantoprazole 40 MG VIAL IVP SCH (17:11)
[2020-03-05] MEDS: Insulin LISPRO 300 UNITS/3 ML VIAL SQ SCH ×5 (00:04→23:39)
[2020-03-05] MEDS: 0.9 % Sodium Chloride 1,000 ML IVC SCH (00:56)
[2020-03-05 04:11] LABS: Basophils % 0.2 %; Eosinophils % 0.1 %; Hematocrit 33.8 % (35.3-44.9); Hemoglobin 10.4 g/dL (11.5-15.4); Immature Granulocytes % 0.9 % (0-4); Lymphocytes # 0.7 K/mcL (0.6-4.6); Lymphocytes % 3.8 %; Mean Corpuscular HGB Conc 30.8 g/dL (31.6-35.5); Mean Corpuscular Hemoglobin 27.2 pg (28.0-33.3); Mean Corpuscular Volume 88.5 fL (83.0-100.0); Mean Platelet Volume 10.5 fL (9.4-12.4); Monocytes # 0.9 K/mcL (0.0-1.3); Monocytes % 4.6 %; Platelet Count 172 K/mcL (140-400); Red Blood Count 3.82 M/mcL (3.82-4.97); Segmented Neutrophils % 90.4 %; White Blood Count 19.5 K/mcL (4.3-11.1)
[2020-03-05 04:16] LABS: Neutrophils # 17.6 K/mcL (1.6-8.9)
[2020-03-05 04:32] LABS: Albumin 3.1 g/dL (3.5-5.7); Albumin/Globulin Ratio 1.1 (1.1-2.2); Bilirubin,Total 1.3 mg/dL (0.3-1.0); Calcium 7.5 mg/dL (8.6-10.3); Globulin 2.8 g/dL (2.4-3.5); Potassium 4.6 mEq/L (3.5-5.1); Total Protein 5.9 g/dL (6.4-8.9)
[2020-03-05 04:36] LABS: Platelet Estimate Normal (Normal); Smudge Cells Present (Not Present)
[2020-03-05] MEDS: Pantoprazole 40 MG VIAL IVP SCH (05:41)
[2020-03-05] MEDS: Cefepime HCl 1,000 MG in Water for inj. (sterile) 10 ML IVP SCH ×3 (05:57→20:42)
[2020-03-05] MEDS: Metoprolol XL (24 HR) Succ 50 MG TAB.ER.24H PO SCH (07:42)
[2020-03-05] MEDS: *HR* Digoxin 0.125 MG TABLET PO SCH (07:42)
[2020-03-05] MEDS: Lactobacillus 1 EACH CAP.SPRINK PO SCH ×2 (07:42→20:42)
[2020-03-05] MEDS: Clindamycin 900 MG/50 ML 900 MG/50 ML IV.SOLN IVPB SCH ×3 (07:42→23:35)
[2020-03-05] MEDS: Magnesium Oxide 400 MG TABLET PO SCH (07:42)
[2020-03-05] MEDS: Nystatin POWDER 30 GM BOTTLE TP SCH ×2 (07:43→20:47)
[2020-03-05] MEDS ORDERED: 0.9 % Sodium Chloride 1,000 ML IVC SCH (10:30)
[2020-03-05] MEDS: Norepinephrine 4 MG/254 ML IV.SOLN IVC SCH (11:52)
[2020-03-05] MEDS ORDERED: Bisacodyl 10 MG RECTAL SUPPOSITORY RC ONE (12:20)
[2020-03-05] MEDS: Phenylephrine 10 MG in 0.9 % Sodium Chloride 250 ML IVC SCH (16:36)
[2020-03-05] MEDS: Heparin 25,000UNIT/250ML 1/2NS 25,000 UNIT/250 ML IV.SOLN IVC SCH (20:48)
[2020-03-05] MEDS: *HR* HYDROcodone/Acet 5/325 mg TABLET PO PRN (21:18)
[2020-03-06] MEDS: *HR* HYDROcodone/Acet 5/325 mg TABLET PO PRN ×2 (03:41→13:54)
[2020-03-06 04:17] LABS: Basophils # 0.1 K/mcL (0.0-0.2); Basophils % 0.5 %; Eosinophils # 0.1 K/mcL (0.0-0.6); Eosinophils % 0.8 %; Hematocrit 33.8 % (35.3-44.9); Hemoglobin 10.3 g/dL (11.5-15.4); Lymphocytes # 0.5 K/mcL (0.6-4.6); Lymphocytes % 3.6 %; Mean Corpuscular HGB Conc 30.5 g/dL (31.6-35.5); Mean Corpuscular Hemoglobin 27.8 pg (28.0-33.3); Mean Corpuscular Volume 91.4 fL (83.0-100.0); Mean Platelet Volume 10.5 fL (9.4-12.4); Monocytes # 1.5 K/mcL (0.0-1.3); Neutrophils # 12.1 K/mcL (1.6-8.9); Platelet Count 160 K/mcL (140-400); Red Cell Distribution Width 15.1 % (11.5-14.5); Segmented Neutrophils % 81.1 %; White Blood Count 14.9 K/mcL (4.3-11.1)
[2020-03-06 04:40] LABS: Calcium 7.8 mg/dL (8.6-10.3); Globulin 2.9 g/dL (2.4-3.5); Magnesium 2.2 mg/dL (1.6-2.6); Potassium 4.6 mEq/L (3.5-5.1); Total Protein 5.9 g/dL (6.4-8.9)
[2020-03-06] MEDS: Cefepime HCl 1,000 MG in Water for inj. (sterile) 10 ML IVP SCH (05:34)
[2020-03-06] MEDS: Insulin LISPRO 300 UNITS/3 ML VIAL SQ SCH ×3 (05:35→17:11)
[2020-03-06] MEDS: *HR* Digoxin 0.125 MG TABLET PO SCH (08:41)
[2020-03-06] MEDS: Clindamycin 900 MG/50 ML 900 MG/50 ML IV.SOLN IVPB SCH ×2 (08:41→17:03)
[2020-03-06] MEDS: Metoprolol XL (24 HR) Succ 50 MG TAB.ER.24H PO SCH (08:41)
[2020-03-06] MEDS: Magnesium Oxide 400 MG TABLET PO SCH (08:41)
[2020-03-06] MEDS: Lactobacillus 1 EACH CAP.SPRINK PO SCH ×2 (08:41→20:00)
[2020-03-06] MEDS: Nystatin POWDER 30 GM BOTTLE TP SCH (08:42)
[2020-03-06] MEDS ORDERED: DilTIAZem CD (24hr) 120 MG CAP.ER.24H PO SCH (09:45)
[2020-03-06 10:33] LABS: INR 1.9; Prothrombin Time 21.5 Seconds (9.4-12.1)
[2020-03-06] MEDS ORDERED: Dextrose Gel 15 GM/37.5 ML TUBE PO PRN ×2 (14:47)
[2020-03-06] MEDS ORDERED: D5% in Water 1,000 ML IVC PRN (14:47)
[2020-03-06] MEDS ORDERED: Acetaminophen 325 MG TABLET PO PRN (14:47)
[2020-03-06] MEDS ORDERED: *HR* Dextrose 50 % in Water (Vial) 50 ML VIAL IVP PRN (14:47)
[2020-03-06] MEDS ORDERED: *HR* Heparin 5,000 UNIT/ML VIAL IVP PRN ×2 (14:47)
[2020-03-06] MEDS: Cefuroxime PO 500 MG TABLET PO SCH (17:02)
[2020-03-06] MEDS ORDERED: Warfarin perPT PO PRN ×2 (18:00)
[2020-03-06] MEDS ORDERED: Cefuroxime PO 250 MG TABLET PO SCH (18:00)
[2020-03-06] MEDS ORDERED: Cefuroxime PO 500 MG TABLET PO SCH (18:00)
[2020-03-06] MEDS ORDERED: *HR* Warfarin 3 MG TABLET PO ONE ×2 (18:00)
[2020-03-06] MEDS: Heparin 25,000UNIT/250ML 1/2NS 25,000 UNIT/250 ML IV.SOLN IVC SCH (19:29)
[2020-03-07] MEDS: Nystatin POWDER 30 GM BOTTLE TP SCH ×3 (00:08→20:09)
[2020-03-07] MEDS: Insulin LISPRO 300 UNITS/3 ML VIAL SQ SCH ×5 (00:20→23:22)
[2020-03-07] MEDS: *HR* HYDROcodone/Acet 5/325 mg TABLET PO PRN (01:15)
[2020-03-07] MEDS: Clindamycin 900 MG/50 ML 900 MG/50 ML IV.SOLN IVPB SCH ×4 (01:19→23:27)
[2020-03-07 03:34] LABS: Prothrombin Time 22.2 Seconds (9.4-12.1)
[2020-03-07 03:35] LABS: Basophils % 0.1 %; Eosinophils # 0.2 K/mcL (0.0-0.6); Hematocrit 34.7 % (35.3-44.9); Hemoglobin 10.4 g/dL (11.5-15.4); Immature Granulocytes % 14.3 % (0-4); Lymphocytes # 0.6 K/mcL (0.6-4.6); Lymphocytes % 4.3 %; Mean Corpuscular Hemoglobin 27.1 pg (28.0-33.3); Mean Corpuscular Volume 90.4 fL (83.0-100.0); Mean Platelet Volume 10.6 fL (9.4-12.4); Monocytes # 1.4 K/mcL (0.0-1.3); Monocytes % 9.2 %; Neutrophils # 10.6 K/mcL (1.6-8.9); Nucleated Red Blood Cells 0.1 /100 WBC (0); Platelet Count 175 K/mcL (140-400); Red Blood Count 3.84 M/mcL (3.82-4.97); Red Cell Distribution Width 15.5 % (11.5-14.5); Segmented Neutrophils % 71.1 %; White Blood Count 14.9 K/mcL (4.3-11.1)
[2020-03-07 03:43] LABS: Potassium 4.7 mEq/L (3.5-5.1)
[2020-03-07 05:05] LABS: Platelet Estimate Normal (Normal)
[2020-03-07] MEDS: Cefuroxime PO 500 MG TABLET PO SCH ×2 (05:44→17:59)
[2020-03-07] MEDS: Metoprolol XL (24 HR) Succ 50 MG TAB.ER.24H PO SCH (07:53)
[2020-03-07] MEDS: Magnesium Oxide 400 MG TABLET PO SCH (07:53)
[2020-03-07] MEDS: *HR* Digoxin 0.125 MG TABLET PO SCH (07:53)
[2020-03-07] MEDS: Lactobacillus 1 EACH CAP.SPRINK PO SCH ×2 (07:53→20:09)
[2020-03-07] MEDS: Heparin 25,000UNIT/250ML 1/2NS 25,000 UNIT/250 ML IV.SOLN IVC SCH ×2 (08:22→08:27)
[2020-03-07 15:14] LABS: VBG HCO3 26 mEq/L (21-27); VBG PCO2 44 mmHg (41-51); VBG PH 7.37 pH Units (7.32-7.42); VBG PO2 222 mmHg (25-50)
[2020-03-07] MEDS ORDERED: *HR* Warfarin 3 MG TABLET PO ONE (18:00)
[2020-03-08] MEDS: *HR* HYDROcodone/Acet 5/325 mg TABLET PO PRN ×4 (00:01→20:47)
[2020-03-08] MEDS: Cefuroxime PO 500 MG TABLET PO SCH ×3 (03:27→18:12)
[2020-03-08] MEDS: Lactobacillus 1 EACH CAP.SPRINK PO SCH ×2 (10:09→20:47)
[2020-03-08] MEDS: Nystatin POWDER 30 GM BOTTLE TP SCH ×2 (10:10→20:51)
[2020-03-08] MEDS: Clindamycin 900 MG/50 ML 900 MG/50 ML IV.SOLN IVPB SCH ×2 (10:10→16:59)
[2020-03-08] MEDS: Metoprolol XL (24 HR) Succ 50 MG TAB.ER.24H PO SCH (10:10)
[2020-03-08] MEDS: *HR* Digoxin 0.125 MG TABLET PO SCH (10:10)
[2020-03-08] MEDS: Magnesium Oxide 400 MG TABLET PO SCH (10:10)
[2020-03-08 14:08] LABS: Hematocrit 38.3 % (35.3-44.9); Hemoglobin 11.9 g/dL (11.5-15.4); Mean Corpuscular HGB Conc 31.1 g/dL (31.6-35.5); Mean Corpuscular Hemoglobin 27.5 pg (28.0-33.3); Mean Corpuscular Volume 88.5 fL (83.0-100.0); Mean Platelet Volume 10.2 fL (9.4-12.4); Nucleated Red Blood Cells 0.1 /100 WBC (0); Platelet Count 214 K/mcL (140-400); Red Blood Count 4.33 M/mcL (3.82-4.97); Red Cell Distribution Width 15.2 % (11.5-14.5); White Blood Count 20.7 K/mcL (4.3-11.1)
[2020-03-08 14:13] LABS: INR 3.7; Prothrombin Time 40.8 Seconds (9.4-12.1)
[2020-03-08 14:27] LABS: Albumin 3.1 g/dL (3.5-5.7); Calcium 8.5 mg/dL (8.6-10.3); Digoxin 2.2 ng/mL (0.8-2.0); Potassium 4.6 mEq/L (3.5-5.1)
[2020-03-08 14:38] LABS: Lymphocytes # 1.7 K/mcL (0.6-4.6); Monocytes # 0.8 K/mcL (0.0-1.3); Neutrophils # 15.7 K/mcL (1.6-8.9)
[2020-03-08 14:39] LABS: Toxic Granulation Present (Not Present)
[2020-03-08 14:40] LABS: Platelet Estimate Normal (Normal); Reactive Lymphocytes Present (Not Present)
[2020-03-08] MEDS ORDERED: DAPTOMYCIN IVPB SCH (18:00)
[2020-03-08] MEDS ORDERED: SODIUM CHLORIDE 0.9% IVPB SCH (18:00)
[2020-03-09 01:48] LABS: Mean Corpuscular HGB Conc 30.8 g/dL (31.6-35.5); Mean Corpuscular Hemoglobin 27.1 pg (28.0-33.3); Mean Corpuscular Volume 88.2 fL (83.0-100.0); Mean Platelet Volume 10.4 fL (9.4-12.4); Nucleated Red Blood Cells 0.1 /100 WBC (0); Platelet Count 214 K/mcL (140-400); Red Blood Count 4.42 M/mcL (3.82-4.97); Red Cell Distribution Width 15.6 % (11.5-14.5); White Blood Count 24.9 K/mcL (4.3-11.1)
[2020-03-09 01:52] LABS: INR 3.9
[2020-03-09 01:55] LABS: Prothrombin Time 43.6 Seconds (9.4-12.1)
[2020-03-09 02:05] LABS: Calcium 8.5 mg/dL (8.6-10.3); Potassium 4.8 mEq/L (3.5-5.1)
[2020-03-09 02:33] LABS: Lymphocytes # 2.5 K/mcL (0.6-4.6); Neutrophils # 22.4 K/mcL (1.6-8.9)
[2020-03-09 02:34] LABS: Platelet Estimate Normal (Normal); Toxic Granulation Present (Not Present)
[2020-03-09] MEDS: Cefuroxime PO 500 MG TABLET PO SCH ×2 (06:14→06:59)
[2020-03-09] MEDS: *HR* HYDROcodone/Acet 5/325 mg TABLET PO PRN (06:17)
[2020-03-09] MEDS: Lactobacillus 1 EACH CAP.SPRINK PO SCH ×2 (07:53→20:03)
[2020-03-09] MEDS: Magnesium Oxide 400 MG TABLET PO SCH (07:53)
[2020-03-09] MEDS: *HR* Digoxin 0.125 MG TABLET PO SCH (07:53)
[2020-03-09] MEDS: Metoprolol XL (24 HR) Succ 50 MG TAB.ER.24H PO SCH (07:53)
[2020-03-09] MEDS: Nystatin POWDER 30 GM BOTTLE TP SCH ×2 (11:41→20:03)
[2020-03-09] MEDS: cefTRIAXone 2,000 MG in 0.9 % Sodium Chloride Mini Bag 100 ML IVPB SCH (14:05)
[2020-03-09] MEDS ORDERED: *HR* Metoprolol 5 MG/5 ML VIAL IVP ONE (16:07)
[2020-03-10 02:42] LABS: Hematocrit 37.6 % (35.3-44.9); Hemoglobin 11.2 g/dL (11.5-15.4); Mean Corpuscular HGB Conc 29.8 g/dL (31.6-35.5); Mean Corpuscular Hemoglobin 26.7 pg (28.0-33.3); Mean Corpuscular Volume 89.5 fL (83.0-100.0); Mean Platelet Volume 10.2 fL (9.4-12.4); Nucleated Red Blood Cells 0.2 /100 WBC (0); Platelet Count 236 K/mcL (140-400); Red Cell Distribution Width 15.7 % (11.5-14.5); White Blood Count 23.2 K/mcL (4.3-11.1)
[2020-03-10 02:48] LABS: INR 3.7; Prothrombin Time 41.3 Seconds (9.4-12.1)
[2020-03-10 03:02] LABS: Calcium 8.5 mg/dL (8.6-10.3); Digoxin 1.5 ng/mL (0.8-2.0); Potassium 4.4 mEq/L (3.5-5.1)
[2020-03-10 03:24] LABS: Eosinophils # 0.5 K/mcL (0.0-0.6); Lymphocytes # 2.6 K/mcL (0.6-4.6); Monocytes # 0.7 K/mcL (0.0-1.3); Platelet Estimate Normal (Normal); Reactive Lymphocytes Present (Not Present)
[2020-03-10] MEDS: Lactobacillus 1 EACH CAP.SPRINK PO SCH ×2 (08:21→19:54)
[2020-03-10] MEDS: Magnesium Oxide 400 MG TABLET PO SCH (08:21)
[2020-03-10] MEDS: Metoprolol XL (24 HR) Succ 50 MG TAB.ER.24H PO SCH (08:21)
[2020-03-10] MEDS: Nystatin POWDER 30 GM BOTTLE TP SCH ×2 (08:22→19:54)
[2020-03-10] MEDS: *HR* Digoxin 0.125 MG TABLET PO SCH (08:22)
[2020-03-10] MEDS: cefTRIAXone 2,000 MG in 0.9 % Sodium Chloride Mini Bag 100 ML IVPB SCH (13:07)
[2020-03-10] MEDS: *HR* HYDROcodone/Acet 5/325 mg TABLET PO PRN (20:40)
[2020-03-11 02:18] LABS: Hematocrit 37.2 % (35.3-44.9); Mean Corpuscular HGB Conc 29.6 g/dL (31.6-35.5); Mean Corpuscular Hemoglobin 26.6 pg (28.0-33.3); Mean Corpuscular Volume 89.9 fL (83.0-100.0); Mean Platelet Volume 10.3 fL (9.4-12.4); Nucleated Red Blood Cells 0.2 /100 WBC (0); Platelet Count 245 K/mcL (140-400); Red Blood Count 4.14 M/mcL (3.82-4.97); Red Cell Distribution Width 15.9 % (11.5-14.5); White Blood Count 19.1 K/mcL (4.3-11.1)
[2020-03-11 02:19] LABS: INR 2.5
[2020-03-11 02:39] LABS: Calcium 8.4 mg/dL (8.6-10.3); Potassium 4.4 mEq/L (3.5-5.1)
[2020-03-11 02:44] LABS: Lymphocytes # 1.2 K/mcL (0.6-4.6); Monocytes # 0.8 K/mcL (0.0-1.3); Neutrophils # 16.4 K/mcL (1.6-8.9)
[2020-03-11 02:45] LABS: Platelet Estimate Normal (Normal)
[2020-03-11] MEDS: Ondansetron 4 MG/2 ML VIAL IVP PRN ×2 (03:19→16:42)
[2020-03-11] MEDS: Lactobacillus 1 EACH CAP.SPRINK PO SCH ×2 (08:01→19:35)
[2020-03-11] MEDS: Magnesium Oxide 400 MG TABLET PO SCH (08:01)
[2020-03-11] MEDS: *HR* HYDROcodone/Acet 5/325 mg TABLET PO PRN ×2 (08:02→18:07)
[2020-03-11] MEDS: Nystatin POWDER 30 GM BOTTLE TP SCH ×2 (08:02→19:35)
[2020-03-11] MEDS: Metoprolol XL (24 HR) Succ 50 MG TAB.ER.24H PO SCH (08:02)
[2020-03-11] MEDS: *HR* Digoxin 0.125 MG TABLET PO SCH (08:02)
[2020-03-11] MEDS: cefTRIAXone 2,000 MG in 0.9 % Sodium Chloride Mini Bag 100 ML IVPB SCH (13:03)
[2020-03-11] MEDS: Sennosides/Docusate Sodium TABLET PO SCH ×2 (13:03→19:35)
[2020-03-11] MEDS: DilTIAZem CD (24hr) 180 MG CAP.ER.24H PO SCH (13:03)
[2020-03-11] MEDS ORDERED: *HR* Warfarin 1 MG TABLET PO ONE (18:00)
[2020-03-12] MEDS: *HR* HYDROcodone/Acet 5/325 mg TABLET PO PRN (01:22)
[2020-03-12 02:16] LABS: Hematocrit 36.3 % (35.3-44.9); Hemoglobin 10.7 g/dL (11.5-15.4); Mean Corpuscular HGB Conc 29.5 g/dL (31.6-35.5); Mean Corpuscular Volume 91.7 fL (83.0-100.0); Mean Platelet Volume 10.2 fL (9.4-12.4); Platelet Count 207 K/mcL (140-400); Red Blood Count 3.96 M/mcL (3.82-4.97); White Blood Count 13.1 K/mcL (4.3-11.1)
[2020-03-12 02:25] LABS: INR 1.8; Prothrombin Time 20.9 Seconds (9.4-12.1)
[2020-03-12 02:36] LABS: Calcium 8.1 mg/dL (8.6-10.3); Potassium 4.8 mEq/L (3.5-5.1)
[2020-03-12 03:07] LABS: Lymphocytes # 2.9 K/mcL (0.6-4.6); Monocytes # 0.5 K/mcL (0.0-1.3); Neutrophils # 8.9 K/mcL (1.6-8.9)
[2020-03-12 03:08] LABS: Platelet Estimate Normal (Normal); Reactive Lymphocytes Present (Not Present); Smudge Cells Present (Not Present)
[2020-03-12] MEDS: DilTIAZem CD (24hr) 180 MG CAP.ER.24H PO SCH (08:28)
[2020-03-12] MEDS: Magnesium Oxide 400 MG TABLET PO SCH (08:28)
[2020-03-12] MEDS: Sennosides/Docusate Sodium TABLET PO SCH (08:28)
[2020-03-12] MEDS: *HR* Digoxin 0.125 MG TABLET PO SCH (08:29)
[2020-03-12] MEDS: Metoprolol XL (24 HR) Succ 50 MG TAB.ER.24H PO SCH (08:29)
[2020-03-12] MEDS: Lactobacillus 1 EACH CAP.SPRINK PO SCH (08:29)
[2020-03-12] MEDS: Nystatin POWDER 30 GM BOTTLE TP SCH (08:30)
[2020-03-12] MEDS ORDERED: Milk and Molasses Enema 200 ML RC ONE (08:47)
[2020-03-12 11:01] LABS: Adenovirus Not Detected (Not Detect); Bordetella Pertussis Not Detected (Not Detect); Chlamydophila pneumoniae Not Detected (Not Detect); Coronavirus 229E Not Detected (Not Detect); Coronavirus HKU1 Not Detected (Not Detect); Coronavirus NL63 Not Detected (Not Detect); Coronavirus OC43 Not Detected (Not Detect); Human Metapneumovirus Not Detected (Not Detect); Human Rhinovirus/Enterovirus Not Detected (Not Detect); Influenza A Subtype 2009 H1 Not Detected (Not Detect); Influenza B Not Detected (Not Detect); Mycoplasma pneumoniae Not Detected (Not Detect); Parainfluenza Virus 1 Not Detected (Not Detect); Parainfluenza Virus 2 Not Detected (Not Detect); Parainfluenza Virus 3 Not Detected (Not Detect); Parainfluenza Virus 4 Not Detected (Not Detect); Respiratory Syncytial Virus Not Detected (Not Detect); SARS-CoV-2 Not Detected (Not Detect)
[2020-03-12 11:33] VITALS: BP 120/72
[2020-03-12] MEDS ORDERED: *HR* Warfarin 2 MG TABLET PO ONE (18:00)
== END 2020-03-12 15:10 | DRG 871 ==
LOC: 2ANU 08:40 → EMEROOARM 08:40 → 2ANU 14:25 → SUATTDRO 15:09 → ICNU 17:43 → 2ANU 03-07 03:44
PROVIDERS: ADMIT Family Medicine; ATTEND Internal Medicine